=== PATIENT | male | born 1950 | race Caucasian/White ===

== ENCOUNTER 2020-05-14 12:40 | Emergency (ER) | payer MEDICARE, OTHER, SELFPAY ==
--- NOTE | ~2020-05-14 | XR_ITS ---
XR knee RT 3V DATE: 05/14/2020 13:54 INDICATION: Injury 3 weeks ago; pain behind patella TECHNIQUE: 3 portable views COMPARISON: None FINDINGS: No fracture or dislocation or joint effusion. No periosteal reaction or bone destruction. J oint spaces are preserved. Slight chondrocalcinosis of the knee joint. Arterial calcifications. IMPRESSION: No fracture or dislocation or joint effusion Reviewed, dictated and finalized at location A.
[2020-05-14 13:58] VITALS: BP 161/76; PULSE 72; RESP 18; TEMP 36.7; O2SAT 100
--- NOTE | 2020-05-14 14:42 | ED.LOWEXIN ---
HPI - Extremity Injury (Lower) General Chief Complaint: Extremity Injury, Lower <Yany Rodrigues PA-C - Last Filed: 05/14/20 14:50> Stated Complaint: R knee pain/injury <MARILY Rodriguez Last Filed: 05/14/20 14:50> Time Seen by Provider: 05/14/20 12:45 <MARILY Rodriguez Last Filed: 05/14/20 14:50> Source: patient <MARILY Rodriguez Last Filed: 05/14/20 14:50> Mode of arrival: ambulatory <MARILY Rodriguez Last Filed: 05/14/20 14:50> Limitations: no limitations <MARILY Rodriguez Last Filed: 05/14/20 14:50> History of Present Illness HPI Narrative: Patient presents with chief complaint of pain to the right knee that began after getting into the car this morning and twisting the knee feeling a popping sensation. Patient reports that the pain is in the center and radiates medially with weightbearing and knee in flexion. Patient states in 1989 he had an arthroscopic procedure for meniscal tears but has not had any other injuries or surgeries on the knee since. Patient states that his orientation and mobility specialist is Dr. thomas but they cannot get him in the office today so he came to the emergency department. Patient states that he took ibuprofen and Tylenol without relief of his discomfort. Patient denies any other injuries or concerns. <Yany Rodrigues PA-C - Last Filed: 05/14/20 14:50> Related Data Allergies/Adverse Reactions: Allergies Allergy/AdvReac Type Severity Reaction Status Date / Time No Known Allergies Allergy Mild Unverified 06/22/11 11:43 <Yany Rodrigues PA-C - Last Filed: 05/14/20 14:50> Review of Systems Review of Systems: Narrative: CONSTITUTIONAL: Denies fever, chills, or sweats. EYES: Denies visual changes, redness, or discharge. ENT: Denies rhinorrhea, congestion, sore throat, or otalgia. CARDIOVASCULAR: Denies chest pain, palpitations, or edema. RESPIRATORY: Denies cough or dyspnea. GASTROINTESTINAL: Denies abdominal pain, nausea, vomiting, or diarrhea. GENITOURINARY: Denies dysuria or hematuria. SKIN: Denies rash or itching. MUSCULOSKELETAL: Reports right knee pain denies back pain, myalgia NEUROLOGIC: Denies headache, numbness, dizziness, or weakness. PSYCHIATRIC: Denies anxiety or depression. <aYny Rodrigues PA-C - Last Filed: 05/14/20 14:50> Exam Narrative: Exam Narrative: GENERAL: Well-appearing, well-nourished. HEAD: Normocephalic, atraumatic. EYES: PERRLA and EOMI. ENT: Nares clear, no rhinorrhea or epistaxis. Mucous membranes moist. Oropharynx without tonsillar hypertrophy exudate or other lesions. Bilateral TMs pearly emanuel nonbulging NECK: Supple. No adenopathy or masses. No vertebral tenderness or loss of ROM. CHEST: Clear to auscultation. No respiratory distress. No wheezes rales or rhonchi HEART: Regular rate and rhythm. Normal peripheral pulses. EXTREMITIES: Minimal swelling noted diffusely to right knee. There is no erythema or ecchymosis. Knee is not painful to palpation. He reports pain with active flexion, less pain with passive flexion. There is not significant laxity noted with anterior posterior drawer maneuvers. Pain is not elicited with medial or lateral tension applied. SKIN: Warm, dry, no rash. NEURO: No focal deficits. Alert and oriented x3. PSYCH: Normal mood and affect. <Yany Rodrigues PA-C - Last Filed: 05/14/20 14:50> Course Vital Signs Vital signs: Vital Signs Temperature 98.1 F 05/14/20 13:58 Pulse Rate 72 05/14/20 13:58 Respiratory Rate 18 05/14/20 13:58 Blood Pressure 161/76 H 05/14/20 13:58 Pulse Oximetry 100 05/14/20 13:58 Temperature 98.1 F 05/14/20 13:58 Pulse Rate 76 05/14/20 14:46 Respiratory Rate 17 05/14/20 14:46 Blood Pressure 159/93 H 05/14/20 14:46 Pulse Oximetry 96 05/14/20 14:46 <MARILY Rodriguez Last Filed: 05/14/20 14:50> Vital Signs Temperature 98.1 F 05/14/20 13:58 Pulse Rate 72 05/14/20 13:58 Respi
[2020-05-14 14:46] VITALS: BP 159/93; PULSE 76; RESP 17; O2SAT 96
== END 2020-05-14 15:18 | disposition home or self-care (01) ==
PROVIDERS: Emergency Provider General Practice; PCP Family Medicine
DX: S83.91XA Sprain of unspecified site of right knee, initial encounter (principal); X50.9XXA Other and unspecified overexertion or strenuous movements or postures, initial encounter
CPT/HCPCS: 73562; 99283

== ENCOUNTER 2020-05-20 10:25 | Outpatient (CLI) | payer MEDICARE, OTHER, SELFPAY ==
--- NOTE | ~2020-05-20 | US_ITS ---
EXAMINATION: US venous doppler [facility] DATE: 05/20/2020 11:21 INDICATION: Lower limb swelling. TECHNIQUE: Grayscale ultrasound images without and with compression and Doppler ultrasound images of the bilateral lower extremity veins were obtained. COMPARISON: Ultrasound 01/03/2018 FINDINGS: The visualized portions of right common femoral vein, profunda (deep) femoral vein, femoral vein, pop liteal vein, posterior tibial veins, and greater saphenous vein outflow are patent. The visualized portions of left common femoral vein, profunda femoral vein, femoral vein, popliteal v ein, posterior tibial veins, and greater saphenous vein outflow are patent. IMPRESSION: 1. No deep venous thrombosis. Reviewed, dictated and finalized at location A.
== END 2020-05-20 10:26 | disposition home or self-care (01) ==
LOC: ANHIMG 10:26
PROVIDERS: PCP Family Medicine; Visit Provider Orthopaedic Surgery
DX: M79.89 Other specified soft tissue disorders (principal)
CPT/HCPCS: 93970

== ENCOUNTER 2020-08-18 10:34 | Outpatient (CLI) | payer MEDICARE, OTHER, SELFPAY ==
[2020-08-18 11:00] LABS: Basophils Absolute Auto 0.1 K/mm3 (0.0-0.1); Eosinophils Absolute Auto 0.4 K/mm3 (0-0.3); Eosinophils Percent Auto 3.7 % (0-4.4); Hematocrit 45.3 % (42.0-52.0); Hemoglobin 15.2 g/dL (14.0-18.0); Immature Granulocyte Absolute 0.07 K/mm3 (0.00-0.031); Immature Granulocyte Percent A 0.7 % (0-0.5); Lymphocytes Absolute Auto 2.09 K/mm3 (0.9-3.2); Lymphocytes Percent Auto 21.1 % (18.3-44.2); Mean Corpuscular HGB Conc 33.6 g/dl (32-36); Mean Corpuscular Volume 95.4 fl (80-100); Mean Platelet Volume 9.1 fl (7.4-10.4); Monocytes Absolute Auto 1.1 K/mm3 (0.1-0.6); Monocytes Percent Auto 11.4 % (2.6-8.5); Neutrophils Absolute Auto 6.2 K/mm3 (1.3-6.7); Neutrophils Percent Auto 62.1 % (45.5-73.1); Platelet Count Result 303 k/mm3 (150-375); Red Blood Count 4.75 M/mm3 (4.6-6.20); Red Cell Distribution Width 12.4 % (11.5-14.5); White Blood Count 9.9 K/mm3 (4.5-10.0)
[2020-08-18 11:12] LABS: Anion Gap 7 mmol/L (8-16); Blood Urea Nitrogen 11 mg/dL (9-20); Carbon Dioxide 28 mmol/L (22-30); Chloride 102 mmol/L (98-107); Estimated Glomerular Filt Rate > 60; Glucose 114 mg/dL (75-110); Potassium 4.5 mmol/L (3.4-5.0); Sodium 137 mmol/L (137-145)
[2020-08-18 12:19] LABS: Folic Acid 9.1 ng/mL (2.76->20)
== END 2020-08-18 10:35 | disposition home or self-care (01) ==
LOC: ANHLAB 10:35
PROVIDERS: PCP Family Medicine; Visit Provider Family Medicine
DX: I10 Essential (primary) hypertension (principal); F10.10 Alcohol abuse, uncomplicated
CPT/HCPCS: 36415; 80048; 82607; 82746; 85025

== ENCOUNTER 2021-01-03 14:03 | Emergency (ER) | payer MEDICARE, OTHER, SELFPAY ==
[2021-01-03 14:13] VITALS: BP 147/65; PULSE 59; RESP 18; TEMP 36.4; O2SAT 100
--- NOTE | 2021-01-03 14:25 | ED.EAR ---
HPI - Ear Problem General Chief complaint: Ear Stated complaint: Pain in left ear Time Seen by Provider: 01/03/21 14:21 Source: patient and RN notes reviewed Mode of arrival: ambulatory Limitations: no limitations History of Present Illness HPI Narrative: Patient presents today complaining of a 2-day history of left ear pain that has been intermittent. Denies any additional symptoms to include cough, congestion, rhinorrhea, left ear drainage, decreased hearing. He does report allergy symptoms but is nonspecific. He does not currently take any allergy medication and has tried no [id number] treatment for his current ear pain symptoms. He has had his COVID-19 vaccine. Currently rates his pain 9/10 when it is present. MD Complaint: ear pain Related Data Home Medications Medication Instructions Recorded Confirmed aspirin 81 mg tablet,delayed 81 mg PO DAILY 08/18/20 01/03/21 release Allergies Allergy/AdvReac Type Severity Reaction Status Date / Time No Known Allergies Allergy Mild Verified 10/29/20 08:52 Review of Systems Review of Systems: Narrative: CONSTITUTIONAL: Denies body aches, fever, chills, or sweats. EYES: Denies visual changes, redness, or discharge. ENT: Denies rhinorrhea, congestion, sore throat. + Left ear pain CARDIOVASCULAR: Denies chest pain, palpitations, or edema. RESPIRATORY: Denies cough or dyspnea. GASTROINTESTINAL: Denies abdominal pain, nausea, vomiting, or diarrhea. GENITOURINARY: Denies dysuria or hematuria. SKIN: Denies rash, itching, or wounds. MUSCULOSKELETAL: Denies back pain, joint pain, or myalgia. NEUROLOGIC: Denies headache, numbness, tingling, or weakness. PSYCH: Denies depression or anxiety. [facility] Past Medical History Medical History Alcohol abuse Basal cell carcinoma BMI greater than 40 Cataract Chronic GERD Hyperlipidemia Hypertension Leg edema Low vitamin B12 level Osteoarthritis of right knee Spinal stenosis Surgical History Surgical History History of knee surgery History of shoulder surgery History of spinal fusion Hx of LASIK Family History Family History Other Heart disease Hypertension Pancreatic cancer Social History Social History Smoking end date: 08/18/20 Alcohol intake: current Drinks per week: 60 Gender identity (if verbalized by the patient): Male Comments At time of signature, I have reviewed and agree with nursing past medical, surgical, social and family history unless otherwise noted. Please see nursing chart for further information. There is no relevant family history pertinent to the presenting complaint Exam Narrative: Exam Narrative: GENERAL: Well-appearing, well-nourished, and in no acute distress. HEAD: Normocephalic, atraumatic. EYES: EOMI. No redness or drainage. Conjunctivae normal. ENT: Mucous membranes pink and moist. Nares clear. No rhinorrhea. Right TM normal. Left TM with clear bulging fluid. Throat normal. Uvula midline. NECK: Normal AROM. Supple. No lymphadenopathy. CHEST: No respiratory distress. Clear to auscultation. HEART: Regular rate and rhythm. No murmur appreciated. Normal peripheral pulses. EXTREMITIES: Normal range of motion. No edema. SKIN: Warm, dry, no rash. Capillary refill normal. Normal skin turgor. NEURO: No focal deficits. Alert and oriented x3. Gait steady. PSYCH: Normal affect. No signs of depression or anxiety. Course Vital Signs Vital signs: Vital Signs Temperature 97.6 F 01/03/21 14:13 Pulse Rate 59 L 01/03/21 14:13 Respiratory Rate 18 01/03/21 14:13 Blood Pressure 147/65 H 01/03/21 14:13 Pulse Oximetry 100 01/03/21 14:13 Temperature 97.6 F 01/03/21 14:13 Pulse Rate 59 L 01/03/21 14:13 Respiratory Rate 18 01/03/21 14:1
== END 2021-01-03 14:32 | disposition home or self-care (01) ==
PROVIDERS: Emergency Provider Nurse Practitioner; PCP Family Medicine
DX: H65.02 Acute serous otitis media, left ear (principal); K21.9 Gastro-esophageal reflux disease without esophagitis; E78.5 Hyperlipidemia, unspecified; I10 Essential (primary) hypertension; Z85.828 Personal history of other malignant neoplasm of skin; M48.00 Spinal stenosis, site unspecified
CPT/HCPCS: 99213; G0463

== ENCOUNTER → 2021-02-04 10:19 | Outpatient (CLI) | payer MEDICARE, OTHER, SELFPAY ==
--- NOTE | ~2021-02-04 | XR_ITS ---
EXAMINATION: XR chest 2V DATE: 02/04/2021 10:35 INDICATION: Cough TECHNIQUE: PA and lateral views of the chest were obtained. COMPARISON: Chest radiograph dated 07/22/2018 FINDINGS: The lungs remain clear with no focal airspace opacities, pulmonary edema, pleural effusion or pneumot horax. The cardiomediastinal silhouette is normal. Visualized bones and soft tissues are unremarkable . IMPRESSION: 1. No acute cardiopulmonary disease. Reviewed, dictated and finalized at location A.
== END ==
PROVIDERS: PCP Family Medicine; Visit Provider Family Medicine
DX: R05 Cough (principal)
CPT/HCPCS: 71046

== ENCOUNTER 2021-05-21 09:41 | Emergency (ER) | payer MEDICARE, OTHER, SELFPAY ==
--- NOTE | ~2021-05-21 | XR_ITS ---
XR foot RT min 3V DATE: 05/21/2021 09:59 INDICATION: Dropped furniture on the metatarsophalangeal areas 4 days ago. Pain. TECHNIQUE: 4 views COMPARISON: None FINDINGS: Plantar calcaneal enthesopathy. There is soft tissue swelling of the foot. No fracture or dislocation, periosteal reaction or bone de struction. IMPRESSION: Plantar calcaneal enthesopathy No fracture or dislocation Reviewed, dictated and finalized at location A.
[2021-05-21 09:49] VITALS: BP 156/73; PULSE 67; RESP 16; TEMP 36.2; O2SAT 98
--- NOTE | 2021-05-21 10:23 | ED.LOWEXIN ---
HPI - Extremity Injury (Lower) General Chief Complaint: Extremity Injury, Lower Stated Complaint: right foot pain Time Seen by Provider: 05/21/21 10:20 Source: patient Mode of arrival: ambulatory Limitations: no limitations History of Present Illness HPI Narrative: Armani Silvestre is a 71 yo male with a PMH of high blood pressure and high cholesterol who [facility] with right foot swelling and pain after dropping a buffet on his foot on Monday he has been able to walk since then but has peripheral circulatory insufficiency and wanted to make sure he did not have a fracture in his foot Related Data Allergies Allergy/AdvReac Type Severity Reaction Status Date / Time No Known Allergies Allergy Mild Verified 05/21/21 10:01 Review of Systems Review of Systems: CONSTITUTIONAL: Denies fever, chills, sweats. EYES: Denies visual changes, redness, discharge. ENT: Denies rhinorrhea, congestion, sore throat, otalgia. CARDIOVASCULAR: Denies chest pain, palpitations, edema. RESPIRATORY: Denies dyspnea, wheezing, cough GASTROINTESTINAL: Denies abdominal pain, nausea, vomiting, diarrhea. GENITOURINARY: Denies dysuria, hematuria, abnormal discharge SKIN: Denies rash or itching. NEUROLOGIC: Denies numbness, or focal weakness. PSYCHIATRIC: Denies anxiety or depression. Right foot pain PMFSH Past Medical History Medical History Alcohol abuse Basal cell carcinoma BMI greater than 40 BMI greater than 40 Cataract Chronic GERD Cough Elevated glucose Hyperlipidemia Hypertension Leg edema Low vitamin B12 level Osteoarthritis of right knee Screening for prostate cancer Spinal stenosis Surgical History Surgical History History of knee surgery History of shoulder surgery History of spinal fusion Hx of LASIK Family History Family History Other Heart disease Hypertension Pancreatic cancer Social History Social History Smoking end date: 08/18/20 Alcohol intake: current Drinks per week: 60 Gender identity (if verbalized by the patient): Male Comments At time of signature, I agree with nursing past medical, surgical, social and family history. There is no relevant family history pertinent to the presenting complaint. Exam Narrative: GENERAL: This is a well-nourished, well-developed patient, in mild distress. HEAD: normocephalic, atraumatic. EYES:. Sclera clear/white. Vision is grossly intact. EARS: External ears normal. Hearing grossly intact. NOSE: External nose normal without nasal discharge, nares without redness, no rhinorrhea. THROAT: Mucous membranes moist, NECK: Neck supple, CARDIOVASCULAR: Regular rate and rhythm without murmurs, gallops, or rubs. RESPIRATORY: Clear to auscultation. Breath sounds equal bilaterally. No wheezes, rales, or rhonchi. GASTROINTESTINAL: Abdomen soft, SKIN: warm, intact with no suspicious lesions or rash, good texture and turgor. NEURO: awake, alert, and oriented to person, place and time. There were no obvious focal neurologic abnormalities. Steady gait EXTREMITIES: Normal range of motion. Right foot pain with swelling with ecchymosis at the base of the toes BACK: Nontender without deformity Course Course Emergency Course: X-ray right foot shows no fracture dislocation there is soft tissue swelling of the foot Francisco J wrap applied to foot, given trauma Vital Signs Vital signs: Vital Signs Temperature 97.2 F L 05/21/21 09:49 Pulse Rate 67 05/21/21 09:49 Respiratory Rate 16 05/21/21 09:49 Blood Pressure 156/73 H 05/21/21 09:49 Pulse Oximetry 98 05/21/21 09:49 Temperature 97.2 F L 05/21/21 09:49 Pulse Rate 67 05/21/21 09:49 Respiratory Rate 16 05/21/21 09:49 Blood Pressure 156/73 H 05/21/21 09:49 Pulse Oximetry 98 05/21/21 0
== END 2021-05-21 10:45 | disposition home or self-care (01) ==
PROVIDERS: Emergency Provider Nurse Practitioner; PCP Family Medicine
DX: M79.671 Pain in right foot (principal); S90.31XA Contusion of right foot, initial encounter; W20.8XXA Other cause of strike by thrown, projected or falling object, initial encounter; K21.9 Gastro-esophageal reflux disease without esophagitis; E78.5 Hyperlipidemia, unspecified; I10 Essential (primary) hypertension; M17.11 Unilateral primary osteoarthritis, right knee; M48.00 Spinal stenosis, site unspecified; Z85.828 Personal history of other malignant neoplasm of skin; H26.9 Unspecified cataract
CPT/HCPCS: 73630; 99213; G0463

== ENCOUNTER 2021-12-23 08:58 | Outpatient (CLI) | payer MEDICARE, OTHER, SELFPAY ==
--- NOTE | ~2021-12-23 | US_ITS ---
EXAMINATION:US venous doppler LE BI INDICATION:Leg swelling TECHNIQUE: Multiple grayscale, color flow and Doppler images of the right and left lower extremity de ep venous systems were obtained and reviewed. COMPARISON:05/20/2020 FINDINGS: The common femoral, superficial femoral and popliteal veins demonstrate normal respiratory variation, augmentation and compressibility. Color flow is also seen within the posterior tibial, pe roneal, greater saphenous and profunda veins. IMPRESSION: 1: No lower extremity deep venous thrombosis. Reviewed, dictated and finalized at location B.
== END 2021-12-23 08:59 | disposition home or self-care (01) ==
LOC: ANHIMG 08:59
PROVIDERS: PCP Family Medicine; Visit Provider Family Medicine
DX: M79.89 Other specified soft tissue disorders (principal)
CPT/HCPCS: 93970

== ENCOUNTER 2021-12-31 12:58 | Outpatient (CLI) | payer MEDICARE, OTHER, SELFPAY ==
--- NOTE | 2021-12-31 13:03 | ECHO_ITS ---
Patient Info Name: Armani Silvestre Age: 71 years : 1950 Gender: Male Ht: 72 in Wt: 335 lbs BSA: 2.85 m2 HR: 66 bpm BP: 176 / 91 mmHg Heart Rhythm: Sinus Rhythm Technical Quality: Fair Exam Date: 12/31/2021 1:12 PM Exam Location: [facility] Patient Status: Outpatient Admit Date: 12/31/2021 Staff Ordering Physician: Tej Irby MD Electrical Equipment Tester: Kaity Carrizales RDCS Attending Provider: Tej Irby MD Referring Physician: Surekha VAUGHN; Exam Type: CA echo doppler color flow Study Info Indications - Essential (primary) hypertension Complete two-dimensional, color flow and Doppler transthoracic echocardiogram is performed. Summary 1. Complete two-dimensional, color flow and Doppler transthoracic echocardiogram is performed. 2. Left ventricular chamber dimension is normal. 3. Left ventricular systolic function is normal, estimated at 60-65%. 4. There is mildly increased left ventricular wall thickness. 5. The left ventricular diastolic function is grade II diastolic dysfunction. 6. E/e' 14 is mildly elevated. 7. No pulmonary hypertension, estimated pulmonary arterial systolic pressure is 15 mmHg. Left Ventricle E/e' 14 is mildly elevated. Left ventricular chamber dimension is normal. Left ventricular systolic function is normal, estimated at 60-65%. There is mildly increased left ventricular wall thickness. The left ventricular diastolic function is grade II diastolic dysfunction. Right Ventricle Right ventricular systolic function is normal and with normal TAPSE 2.6 cm. Right ventricular chamber dimension is normal. Left Atria Left atrial chamber dimension is normal. Right Atria Right atrial chamber dimension is normal. Aortic Valve The aortic valve is trileaflet. There is no aortic valve stenosis. There is no aortic valve regurgitation. Pulmonic Valve There is no pulmonic regurgitation. Mitral Valve There is no mitral valve stenosis. There is no mitral valve regurgitation. Tricuspid Valve There is no tricuspid valve regurgitation. No pulmonary hypertension, estimated pulmonary arterial systolic pressure is 15 mmHg. Pericardium/Pleural There is no pericardial effusion. Inferior Vena Cava Normal inferior vena cava with >50% collapse upon inspiration consistent with normal right atrial pressure, 5 mmHg. Aorta The aortic root size at the sinus of Valsalva is normal. Left Ventricular Outflow Tract Name Value Normal LVOT 2D LVOT Diameter 2.1 cm LVOT Doppler LVOT Peak Gradient 6 mmHg LVOT Mean Gradient 3 mmHg LVOT VTI 25 cm LVOT VTI/AV VTI Ratio 0.9 LVOT Stroke Volume 87 ml LVOT CO 5.6 l/min LVOT CI 2.0 l/min/m2 Pulmonic Valve Name Value Normal
== END 2021-12-31 12:59 | disposition home or self-care (01) ==
LOC: ANHCARD 12:59
PROVIDERS: PCP Family Medicine; Visit Provider Family Medicine
DX: I10 Essential (primary) hypertension (principal)
CPT/HCPCS: 93306

== ENCOUNTER 2022-07-03 09:52 | Emergency (ER) | payer MEDICARE, OTHER, SELFPAY ==
--- NOTE | ~2022-07-03 | XR_ITS ---
XR chest 2V DATE: 07/03/2022 10:06 INDICATION: Chest pain TECHNIQUE: PA and lateral views COMPARISON: 02/04/2021 PA and lateral chest FINDINGS: Heart size is within normal range. Is aortic arch calcification and minimal aortic unfoldin g. No hilar or mediastinal enlargement. No pulmonary infiltrate or consolidation, pleural effusion or pulmonary vascular congestion or pneumo thorax. IMPRESSION: No active cardiopulmonary disease Reviewed, dictated and finalized at location A. [employer]
--- NOTE | 2022-07-03 09:54 | ECG_ITS ---
Measurements Intervals [place] Rate: 62 P: -23 MN: 188 QRS: 131 QRSD: 89 T: 94 QT: 387 QTc: 394 Interpretive Statements SINUS RHYTHM HIGH LATERAL INFARCT, AGE INDETERMINATE BASELINE ARTIFACT- II, AVR, AVF ABNORMAL ECG NO PREVIOUS ECG AVAILABLE FOR COMPARISON Electronically Signed On 07-03-2022 15:55:51 REFRIGERATION SYSTEMS INSTALLER by Roger Chopra D.O.
[2022-07-03 09:56] VITALS: BP 122/59; PULSE 63; RESP 16; TEMP 36.7; O2SAT 95
[2022-07-03 10:25] LABS: Basophils Absolute Auto 0.1 K/mm3 (0.0-0.1); Eosinophils Percent Auto 0.5 % (0-4.4); Hematocrit 45.6 % (42.0-52.0); Hemoglobin 15.3 g/dL (14.0-18.0); Immature Granulocyte Absolute 0.04 K/mm3 (0.00-0.031); Immature Granulocyte Percent A 0.7 % (0-0.5); Lymphocytes Percent Auto 18.3 % (18.3-44.2); Mean Corpuscular HGB Conc 33.6 g/dl (32-36); Mean Corpuscular Hemoglobin 33.5 pg (26-34); Mean Corpuscular Volume 99.8 fl (80-100); Mean Platelet Volume 9.3 fl (7.4-10.4); Monocytes Absolute Auto 1.3 K/mm3 (0.1-0.6); Monocytes Percent Auto 21.1 % (2.6-8.5); Neutrophils Absolute Auto 3.5 K/mm3 (1.3-6.7); Neutrophils Percent Auto 58.4 % (45.5-73.1); Platelet Count Result 252 k/mm3 (150-375); Red Blood Count 4.57 M/mm3 (4.6-6.20); Red Cell Distribution Width 12.7 % (11.5-14.5)
[2022-07-03 10:31] VITALS: PULSE 60
[2022-07-03 10:32] VITALS: BP 130/68; PULSE 61; RESP 15; O2SAT 93
[2022-07-03 10:36] LABS: Alanine Aminotransferase 40 U/L (6-50); Albumin Level 4.3 g/dL (3.5-5.1); Alkaline Phosphatase 59 U/L (38-126); Anion Gap 11 mmol/L (8-16); Aspartate Amino Transferase 56 U/L (17-59); Bilirubin,Total 0.7 mg/dL (0.2-1.3); Blood Urea Nitrogen 14 mg/dL (9-20); Calcium 8.3 mg/dL (8.4-10.2); Carbon Dioxide 26 mmol/L (22-30); Chloride 98 mmol/L (98-107); Estimated CRCL calculation 82 ml/min; Estimated Glomerular Filt Rate > 60; Glucose 136 mg/dL (65-110); Lipase 38 U/L (23-300); Potassium 3.4 mmol/L (3.4-5.0); Sodium 135 mmol/L (137-145)
[2022-07-03 10:38] LABS: INR 1.1; Prothrombin Time 13.3 Seconds (11.1-14.7)
[2022-07-03 10:47] LABS: Troponin I < 0.012 ng/mL (0.000-0.034)
[2022-07-03 11:18] LABS: Influenza A QL RT-PCR Positive (Negative); Influenza B QL RT-PCR Negative (Negative); SARS-CoV-2 RNA PCR Negative
[2022-07-03 11:48] VITALS: BP 130/68; PULSE 61; RESP 18; O2SAT 94
--- NOTE | 2022-07-03 12:41 | ED.CHESTPAIN ---
HPI - Chest Pain General Chief Complaint: Chest Pain Stated Complaint: diaphoretic, CP Time Seen by Provider: 07/03/22 10:02 History of Present Illness HPI narrative: Patient is a 72-year-old male who presents ER with diaphoresis and cough. Patient began having cough yesterday. Associated sinus congestion. No sore throat. Began having sweats and chills last night as well. Patient has occasional chest pain with coughing and feels congested. No pain with deep breath. No exertional chest discomfort. No documented fever at home. Related Data Allergies Allergy/AdvReac Type Severity Reaction Status Date / Time No Known Allergies Allergy Mild Verified 07/03/22 10:33 Review of Systems Review of Systems: All systems reviewed & are unremarkable except as noted in HPI and below Constitutional: Constitutional: Denies chills, Reports fatigue and Denies fever(s) Comments: Diaphoresis ENT: Reports nasal congestion and Denies sore throat Cardiovascular: Cardiovascular: Reports chest pain, Denies rapid heart rate and Denies radiating jaw, neck or arm pain Respiratory: Respiratory: Reports chest congestion, Reports cough and Denies dyspnea Gastrointestinal: Gastrointestinal: Denies abdominal pain, Denies nausea and Denies vomiting Neurologic: Denies focal weakness and Denies numbness PMFSH Past Medical History Medical History Alcohol abuse Basal cell carcinoma BMI greater than 40 BMI greater than 40 Cataract Chronic GERD Cough Elevated glucose Hyperlipidemia Hypertension Leg edema Low vitamin B12 level Osteoarthritis of right knee Screening for prostate cancer Spinal stenosis Surgical History Surgical History History of knee surgery History of shoulder surgery History of spinal fusion Hx of LASIK Family History Family History Other Heart disease Hypertension Pancreatic cancer Social History Social History Smoking status: Former smoker Tobacco type: cigarettes Smoking end date: 08/18/20 Alcohol intake: current Drinks per week: 60 Gender identity (if verbalized by the patient): Male Exam Narrative: GENERAL: Fatigued-appearing, well-nourished, and diaphoretic. HEAD: Normocephalic, atraumatic. EYES: PERRL and EOMI. ENT: Mucous membranes moist. CHEST: Clear to auscultation. No respiratory distress. Occasional cough. HEART: Regular rate and rhythm. Normal peripheral pulses. ABDOMEN: Soft, nontender, nondistended. EXTREMITIES: Normal range of motion. No edema. SKIN: Warm, dry, no rash. NEURO: Alert and oriented x3. PSYCH: Normal mood and affect. Course Course Emergency Course: Patient resting comfortably. Informed of results. Symptoms felt to be related to patient's acute influenza infection. Will discharge with Tamiflu. Vital Signs Vital signs: Vital Signs Temperature 98.1 F 07/03/22 09:56 Pulse Rate 63 07/03/22 09:56 Respiratory Rate 16 07/03/22 09:56 Blood Pressure 122/59 L 07/03/22 09:56 Pulse Oximetry 95 07/03/22 09:56 Temperature 98.1 F 07/03/22 09:56 Pulse Rate 61 07/03/22 11:48 Respiratory Rate 18 07/03/22 11:48 Blood Pressure 130/68 07/03/22 11:48 Pulse Oximetry 94 07/03/22 11:48 MDM - Chest Pain Lab Data Result diagrams: 07/03/22 10:12 07/03/22 10:12 Labs: Lab Results 07/03/22 07/03/22 07/03/22 Range/Units 10:12 10:12 10:12 WBC 6.0 (4.5-10.0) K/mm3 RBC 4.57 L (4.6-6.20) M/mm3 Hgb 15.3 (14.0-18.0) g/dL Hct 45.6 (42.0-52.0) % MCV 99.8 (80-100) fl MCH 33.5 (26-34) pg MCHC 33.6 (32-36) g/dl RDW 12.7 (11.5-14.5) % Plt Count 252 (150-375) k/mm3 MPV 9.3 (7.4-10.4) fl Immature Gran % (Auto) 0.7 H (0-0.5) % Neut % (Auto) 58.
== END 2022-07-03 12:57 | disposition home or self-care (01) ==
PROVIDERS: Emergency Provider Emergency Medicine; PCP Family Medicine
DX: J10.1 Influenza due to other identified influenza virus with other respiratory manifestations (principal); Z20.822 Contact with and (suspected) exposure to COVID-19; E78.5 Hyperlipidemia, unspecified; I10 Essential (primary) hypertension; Z85.828 Personal history of other malignant neoplasm of skin; M17.11 Unilateral primary osteoarthritis, right knee; R07.9 Chest pain, unspecified; Z98.1 Arthrodesis status; Z87.891 Personal history of nicotine dependence; R94.31 Abnormal electrocardiogram [ECG] [EKG]
CPT/HCPCS: 36415; 71046; 80053; 83690; 84484; 85025; 85610; 85730; 87636; 93005; 99284

== ENCOUNTER 2023-02-14 01:19 | Day surgery (SDC) | payer MEDICARE, OTHER, SELFPAY ==
[2023-01-10 14:20] VITALS: BMI 42.4
[2023-02-14 09:40] VITALS: BP 155/82; PULSE 57; RESP 20; TEMP 36.4; O2SAT 100; BMI 42.7
[2023-02-14] MEDS: LACTATED RINGERS 1,000 ML 150 ML IV CONT (09:55)
[2023-02-14 09:57] LABS: Glucose Point of Care 106 mg/dl (65-105)
--- NOTE | 2023-02-14 10:11 | PM.HPGS ---
History of Present Illness History of Present Illness Consent: Risks, benefits, and alternatives have been discussed and questions answered. Patient agrees to proceed with procedure. Chief complaint: diarrhea Narrative: Armani Silvestre is a 72 year old male Presents for colonoscopy. Patient reports diarrhea over last several months. States during this interval of time was started on Entresto. He also takes Jardiance. He has mildly elevated glucose. Patient denies a diagnosis of diabetes. Patient reports diarrhea occurs shortly after eating. He denies any bleeding weight loss. He has no abdominal pain. Family history noncontributory. Review of Systems Review of Systems: Review of systems noncontributory. [facility] Past Medical History Medical History (Updated 11/28/22 @ 10:05 by Tej Irby MD) Alcohol abuse Basal cell carcinoma BMI greater than 40 BMI greater than 40 Cataract Chronic GERD Cough Diarrhea Elevated glucose Elevated glucose Heart failure with preserved ejection fraction Hyperlipidemia Hypertension Leg edema Low vitamin B12 level Osteoarthritis of right knee Polyuria Screening for prostate cancer Spinal stenosis Surgical History Surgical History History of knee surgery History of shoulder surgery History of spinal fusion Hx of LASIK Family History Family History Other Heart disease Hypertension Pancreatic cancer Social History Social History Smoking packs per day: 2 Smoking cigarettes per day: 40.0 Years smoked: 30 Smoking pack-years: 60.00 Smoking status: Former smoker Tobacco type: cigarettes Smoking end date: 08/18/20 Alcohol intake: current Drinks per week: 36 Substance use type: does not use Living arrangements: with family Gender identity (if verbalized by the patient): Male Spiritual care concerns: No Meds Home Medications and Allergies Home Medications Medication Instructions Recorded Confirmed Type acetaminophen 500 mg tablet 500 mg PO Q6H 10/24/22 02/14/23 History empagliflozin 10 mg tablet 10 mg PO DAILY 10/24/22 02/14/23 History (Jardiance) sacubitril 49 mg-valsartan 51 mg 1 tablet PO BID 10/24/22 02/14/23 History tablet (Entresto) furosemide 40 mg tablet 40 mg PO QAM #90 tabs 11/29/22 02/14/23 Rx metoprolol succinate 100 mg 100 mg PO DAILY #90 tabs 12/03/22 02/14/23 Rx tablet,extended release 24 hr atorvastatin 10 mg tablet 10 mg PO DAILY #90 tabs 01/10/23 02/14/23 Rx omeprazole 20 mg capsule,delayed 20 mg PO DAILY #90 caps 01/10/23 02/14/23 Rx release potassium chloride 10 mEq 10 meq PO DAILY #90 caps 01/10/23 02/14/23 Rx capsule,extended release Allergies Allergy/AdvReac Type Severity Reaction Status Date / Time No Known Allergies Allergy Mild Verified 02/14/23 09:37 Vital Signs Vital Signs - 24 hr 02/14/23 09:40 Temperature 97.5 F L Pulse Rate 57 L Respiratory Rate 20 Blood Pressure 155/82 H Pulse Oximetry 100 Oxygen Delivery Room Air Exam Narrative: Physical exam reveals patient be overweight. Vital signs are stable. HEENT exam is unremarkable. Patient is anicteric. Lungs are clear to auscultation and percussion. Heart is without murmur or extra sounds. Abdomen bowel sounds are present soft nontender with no organomegaly. Digital external rectal exam normal. Assessment and Plan Assessment and plan (1) Diarrhea: Qualifiers: Diarrhea type: unspecified type Qualified Code(s): R19.7 - Diarrhea, unspecified Code(s): R19.7 - Diarrhea, unspecified Status: Acute Assessment and Plan: Patient referred for colonoscopy because of diarrhea. Diarrhea shortly after eating suggested gastric colic reflex which may be heightened in irritable bowel syndrome. Additionally saroj
--- NOTE | 2023-02-14 10:16 | WPDANESEPPF ---
Anes - Initial Pre Proc Eval Procedure: Operation Date: 02/14/23 10:30 Proposed Procedures p Colonoscopy - Ko Zamorano MD Date/Time: 02/14/23 10:16 Surgeon: Ko Zamorano MD Pre Op Diagnosis: diarrhea Patient Data Age: 72 Gender: M Height: 1.83 m Weight: 142.8 kg Last Vital Signs Temp 36.4 C L 02/14/23 09:40 Pulse 57 L 02/14/23 09:40 Resp 20 02/14/23 09:40 BP 155/82 H 02/14/23 09:40 Pulse Ox 100 02/14/23 09:40 O2 Del Method Room Air 02/14/23 09:40 Allergies Allergy/AdvReac Type Severity Reaction Status Date / Time No Known Allergies Allergy Mild Verified 02/14/23 09:37 Home Medications Medication Instructions Recorded Confirmed Type acetaminophen 500 mg tablet 500 mg PO Q6H 10/24/22 02/14/23 History empagliflozin 10 mg tablet 10 mg PO DAILY 10/24/22 02/14/23 History (Jardiance) sacubitril 49 mg-valsartan 51 mg 1 tablet PO BID 10/24/22 02/14/23 History tablet (Entresto) furosemide 40 mg tablet 40 mg PO QAM #90 tabs 11/29/22 02/14/23 Rx metoprolol succinate 100 mg 100 mg PO DAILY #90 tabs 12/03/22 02/14/23 Rx tablet,extended release 24 hr atorvastatin 10 mg tablet 10 mg PO DAILY #90 tabs 01/10/23 02/14/23 Rx omeprazole 20 mg capsule,delayed 20 mg PO DAILY #90 caps 01/10/23 02/14/23 Rx release potassium chloride 10 mEq 10 meq PO DAILY #90 caps 01/10/23 02/14/23 Rx capsule,extended release Laboratory Tests 02/14/23 09:53 POC Capillary Glucose 106 H mg/dl (65-105) Patient hx anesthesia problems: none Family hx anesthesia problems: other (mother slow to awaken) Results Review: All pre-operative results and documents have been reviewed as part of the pre-operative evaluation. [facility] Past Medical History Medical History Alcohol abuse Basal cell carcinoma BMI greater than 40 BMI greater than 40 Cataract Chronic GERD Cough Diarrhea Elevated glucose Elevated glucose Heart failure with preserved ejection fraction Hyperlipidemia Hypertension Leg edema Low vitamin B12 level Osteoarthritis of right knee Polyuria Screening for prostate cancer Spinal stenosis Surgical History Surgical History History of knee surgery History of shoulder surgery History of spinal fusion Hx of LASIK Family History Family History Other Heart disease Hypertension Pancreatic cancer Social History Social History Smoking packs per day: 2 Smoking cigarettes per day: 40.0 Years smoked: 30 Smoking pack-years: 60.00 Smoking status: Former smoker Tobacco type: cigarettes Smoking end date: 08/18/20 Alcohol intake: current Drinks per week: 36 Substance use type: does not use Living arrangements: with family Gender identity (if verbalized by the patient): Male Spiritual care concerns: No Anes - Eval Final PreProcedure Day of Procedure 02/14/23 10:16 Patient weight: morbidly obese Heart: regular rate and rhythm Lungs: decreased breath sounds Airway: Mallampati scale class III Neurological: alert and oriented Last oral intake: >/= 8 hours ASA classification: III Emergent: no Anesthetic plan: proceed Anesthesia type and monitoring: general GIVS and standard monitoring Results Review: All pre-operative results and documents have been reviewed as part of the pre-operative evaluation. Informed Consent: The patient's anesthetic plan and its attendant risks and benefits were discussed with the patient/family/POA. Questions were solicited and answers provided to the satisfaction of the patient/family/POA.
[2023-02-14] MEDS: SIMETHICONE ORAL SUSPENSION 20 MG/0.3 ML 30 ML BOTTLE 0.6 ML IRRIGATION (10:58)
[2023-02-14 11:03] VITALS: BP 126/66; PULSE 57; RESP 19; O2SAT 98
[2023-02-14 11:13] VITALS: BP 144/72; PULSE 53; RESP 19; O2SAT 100
[2023-02-14 11:23] VITALS: BP 159/87; PULSE 53; RESP 21; O2SAT 100
== END 2023-02-14 11:36 | disposition home or self-care (01) ==
PROVIDERS: PCP Family Medicine; Visit Provider Internal Medicine Gastroenterology
PROC: 0DJD8ZZ Inspection of Lower Intestinal Tract, Via Natural or Artificial Opening Endoscopic (ICD-10-PCS; CPT 45378; principal; 2023-02-14 10:30)
DX: R19.7 Diarrhea, unspecified (principal); D12.2 Benign neoplasm of ascending colon; K63.5 Polyp of colon; K64.8 Other hemorrhoids; K57.30 Diverticulosis of large intestine without perforation or abscess without bleeding; E78.5 Hyperlipidemia, unspecified; I11.0 Hypertensive heart disease with heart failure; I50.9 Heart failure, unspecified; K21.9 Gastro-esophageal reflux disease without esophagitis; Z98.1 Arthrodesis status; Z87.891 Personal history of nicotine dependence; E66.01 Morbid (severe) obesity due to excess calories; Z68.41 Body mass index [BMI] 40.0-44.9, adult; Z79.84 Long term (current) use of oral hypoglycemic drugs
CPT/HCPCS: 45385; 45380; 82948; 88305; J2704; J7120

== ENCOUNTER 2023-05-22 12:30 | Outpatient (RCR) | payer MEDICARE, OTHER, SELFPAY ==
--- NOTE | 2023-04-11 14:54 | OPREHPOC ---
Outpatient Therapy Plan of Care This is a Multidisciplinary Plan of Care that may contain components documented by all disciplines (PT, OT, and ST.) PT Problem 1 PT Problem #1 Knowledge Deficit PT Goal 1 Goal [place] with HEP Target Visit 4 PT Problem 2 PT Problem #2 Pain PT Goal 1 Goal report no pain greater than 1/10 with sit to stand activity Target Visit 8 PT Problem 3 PT Problem #3 Edema PT Goal 1 Goal Demonstrate 3cm+ on L knee edema reduction at joint line indicating soft tissue healing Target Visit 12 PT Problem 4 PT Problem #4 Impaired Range of Motion PT Goal 1 Goal Achieve terminal R knee extension to achieve full stride length bilaterally Target Visit 12 PT Goal 2 Goal Achieve 120 degrees of R knee flexion to assist with foot clearence with ADLs Target Visit 12 PT Problem 5 PT Problem #5 Impaired Functional ADLs PT Goal 1 Goal Ascend and descend 12 steps reciprocally for safe transition down basement steps Target Visit 12 PT Goal 2 Goal Perform 20 inch step up with UE assist for entrance to truck Target Visit 12
--- NOTE | 2023-04-11 14:54 | PTOPEVAL1 ---
Assessment and note entered by Barry Garcia, PT Evaluation Information Assessment Status Evaluation Diagnosis Right total knee arthroplasty, Right knee pain Onset 03/20/23 Subjective Information Reports that he is having pain consistently but overall doing well. Hurts to get in and out of bed or the chair. 3 steps to get into home and a full flight. He is wanting to be able to go down stairs and be able to do as high step into his truck which he cant right now. Feels that it is really swollen around the knee cap. Would also like to return to driving. Reported Pain Level Pain Score 3: Self Report Assessment PT Clinical Summary Mr. Silvestre demonstrates signs and symptoms consistent with TKA. Greatest limitations at this time appear to be edema and lack of terminal knee stance during gait. He will benefit from skilled therapy to address these deficits. Would like to return to driving. Dr. Reilly indicated need for stair navigation prior to driving. He is able to do this. He is also demonstrating sufficient foot and ankle transitional activity to justify return to driving at this time. Will benefit from skilled therapy to reach all long and short term goals. Plan of Care Interventions Gait Training,Hot Pack/Cold Pack,Manual Therapy, Neuro Re-education,Therapeutic Activities, Therapeutic Exercise PT Services Indicated Yes Treatment Frequency and 2x/week for 6 weeks Duration These treatments will address the objective and functional deficits as defined above. The patient will be advanced safely and appropriately in order for the patient to progress towards his/her prior level of function. Additional exercises will be introduced and as well as a comprehensive home exercise program upon discharge, if needed, ?to ensure carryover of functional gains achieved in the clinic. This treatment plan has been reviewed and agreement upon by the patient.
--- NOTE | 2023-05-08 14:41 | OPREHPOC ---
Outpatient Therapy Plan of Care This is a Multidisciplinary Plan of Care that may contain components documented by all disciplines (PT, OT, and ST.) PT Problem 1 PT Problem #1 Knowledge Deficit PT Goal 1 Goal [place] with HEP Target Visit 4 Progress Met PT Problem 2 PT Problem #2 Pain PT Goal 1 Goal report no pain greater than 1/10 with sit to stand activity Target Visit 8 Progress Met PT Problem 3 PT Problem #3 Edema PT Goal 1 Goal Demonstrate 3cm+ on L knee edema reduction at joint line indicating soft tissue healing Target Visit 12 Progress Partially Met Comment Progressing but still considerable swelling present. PT Problem 4 PT Problem #4 Impaired Range of Motion PT Goal 1 Goal Achieve terminal R knee extension to achieve full stride length bilaterally Target Visit 12 Progress Partially Met Comment Improved but still lacking PT Goal 2 Goal Achieve 120 degrees of R knee flexion to assist with foot clearance with ADLs Target Visit 12 Progress Met PT Problem 5 PT Problem #5 Impaired Functional ADLs PT Goal 1 Goal Ascend and descend 12 steps reciprocally for safe transition down basement steps Target Visit 12 Progress Met Comment Able to complete today PT Goal 2 Goal Perform 20 inch step up with UE assist for entrance to truck Target Visit 12 Progress Partially Met Comment Achieved 16 in step up
--- NOTE | 2023-05-08 14:46 | PTOPPROG ---
Assessment and note entered by Barry Garcia, PT Evaluation Information Assessment Status Progress Diagnosis Right total knee arthroplasty, Right knee pain Onset 03/20/23 Subjective Information Reports that overall he is doing a lot better. Hoping to return to mowing his yard this week. Knee still feels significantly swollen and he is having trouble with high steps to get into truck. Would like to continue therapy to work on LE stability and gait pattern improvement. Assessment PT Clinical Summary Patient has seen significant improvement in LE strength, knee ROM, and edema, but still shows deficits of fully functional in each. Will continue to benefit from skilled therapy to address these deficits and maximize gross function of gait and ADLs. Needs emphasis placed on terminal knee extension. Plan of Care Interventions Gait Training,Hot Pack/Cold Pack,Manual Therapy, Neuro Re-education,Therapeutic Activities, Therapeutic Exercise PT Services Indicated Yes Treatment Frequency and 2x/week for 6 weeks Duration These treatments will address the objective and functional deficits as defined above. The patient will be advanced safely and appropriately in order for the patient to progress towards his/her prior level of function. Additional exercises will be introduced and as well as a comprehensive home exercise program upon discharge, if needed, ?to ensure carryover of functional gains achieved in the clinic. This treatment plan has been reviewed and agreement upon by the patient.
--- NOTE | 2023-05-15 15:44 | PCPTNOTE ---
Pt. canceled 05/15/23 appointment noting that he was sick.
--- NOTE | 2023-05-22 13:07 | OPREHPOC ---
Outpatient Therapy Plan of Care This is a Multidisciplinary Plan of Care that may contain components documented by all disciplines (PT, OT, and ST.) PT Problem 1 PT Problem #1 Knowledge Deficit PT Goal 1 Goal [place] with HEP Target Visit 4 Progress Met PT Problem 2 PT Problem #2 Pain PT Goal 1 Goal report no pain greater than 1/10 with sit to stand activity Target Visit 8 Progress Met PT Problem 3 PT Problem #3 Edema PT Goal 1 Goal Demonstrate 3cm+ on L knee edema reduction at joint line indicating soft tissue healing Target Visit 12 Progress Met Comment Minimal still present PT Problem 4 PT Problem #4 Impaired Range of Motion PT Goal 1 Goal Achieve terminal R knee extension to achieve full stride length bilaterally Target Visit 12 Progress Partially Met Comment Improved but still lacking PT Goal 2 Goal Achieve 120 degrees of R knee flexion to assist with foot clearance with ADLs Target Visit 12 Progress Met PT Problem 5 PT Problem #5 Impaired Functional ADLs PT Goal 1 Goal Ascend and descend 12 steps reciprocally for safe transition down basement steps Target Visit 12 Progress Met Comment Able to complete today PT Goal 2 Goal Perform 20 inch step up with UE assist for entrance to truck Target Visit 12 Progress Met
--- NOTE | 2023-05-22 13:07 | PTOPDC ---
Assessment and note entered by Barry Garcia, PT Discharge Information Assessment Status Discharge Diagnosis Right total knee arthroplasty, Right knee pain Onset 03/20/23 Subjective Information Reports that as of now there is nothing that he cannot do that he needs to. Feels comfortable with stair navigation, walking, and functional squatting activity. Requesting discharge at this time. Reported Pain Level Pain Score 0: Self Report Assessment PT Clinical Summary Patient meat all of his goals for therapy with exception of full terminal knee extension which will be emphasized as part of halfway HEP. Patient mutually agrees upon discharge at this time. Plan of Care PT Services Indicated No
== END 2023-05-22 14:07 | disposition home or self-care (01) ==
LOC: ANHPT 12:30
PROVIDERS: PCP Family Medicine
DX: Z47.1 Aftercare following joint replacement surgery (principal); Z96.651 Presence of right artificial knee joint
CPT/HCPCS: 97110; 97112; 97140; 97161; 97530

== ENCOUNTER 2023-07-17 09:58 | Emergency (ER) | payer MEDICARE, OTHER, SELFPAY ==
--- NOTE | ~2023-07-17 | XR_ITS ---
EXAMINATION: XR hand LT min 3V INDICATION: Left hand pain, initial encounter TECHNIQUE: Three views of left hand are obtained. COMPARISON: None available FINDINGS: There is an acute, traumatic, closed, oblique shaft fracture of the fifth metacarpal. The d istal fracture fragment demonstrates mild angulation and one cortical width of lateral displacement. There is soft tissue swelling near the fracture. There is mild polyarticular osteoarthritis of multip le interphalangeal joints. Moderate osteoarthritis is noted at the first carpometacarpal joint. IMPRESSION: 1. Acute oblique shaft fracture of the fifth metacarpal. Reviewed, dictated and finalized at location B. RENTAL CLERK
[2023-07-17 10:13] VITALS: BP 187/79; PULSE 82; RESP 16; TEMP 36.4; O2SAT 98
--- NOTE | 2023-07-17 10:56 | ED.UPPEXIN ---
HPI - Extremity Injury (Upper) General Chief Complaint: Extremity Injury, Upper Stated Complaint: left hand injury Time Seen by Provider: 07/17/23 10:55 Source: patient and RN notes reviewed Mode of arrival: ambulatory Limitations: no limitations History of Present Illness HPI narrative: 73-year-old male presents concern for left hand pain and bruising. Reports he fell on July 06 and injury to his hand. Reports he has had some pain and difficulty making a fist since then. Reports he has been taking Tylenol. Reports he noticed some bruising on the dorsal hand today and his made him come and be evaluated. He denies any new injury since July 06 complaint: injury to: left and hand Related Data Home Medications Medication Instructions Recorded Confirmed acetaminophen 500 mg tablet 500 mg PO Q6H 10/24/22 07/17/23 empagliflozin 10 mg tablet 10 mg PO DAILY 10/24/22 07/17/23 (Jardiance) sacubitril 49 mg-valsartan 51 mg 1 tablet PO BID 10/24/22 07/17/23 tablet (Entresto) Allergies Allergy/AdvReac Type Severity Reaction Status Date / Time No Known Allergies Allergy Mild Verified 07/17/23 10:26 Review of Systems Review of Systems: CONSTITUTIONAL: Denies malaise, chills, sweats, or fever. SKIN: Denies rash or itching, open skin, laceration, abrasion, redness, warmth MUSCULOSKELETAL: Reports left hand pain, swelling, bruising NEUROLOGIC: Denies numbness, weakness All systems reviewed & are unremarkable except as noted in HPI and below PMFSH Past Medical History Medical History Alcohol abuse Basal cell carcinoma BMI greater than 40 BMI greater than 40 Cataract Chronic GERD Cough Diarrhea Elevated glucose Elevated glucose Heart failure with preserved ejection fraction Hyperlipidemia Hypertension Leg edema Low vitamin B12 level Morbid (severe) obesity due to excess calories Osteoarthritis of right knee Polyuria Screening for prostate cancer Spinal stenosis Surgical History Surgical History History of knee surgery History of shoulder surgery History of spinal fusion Hx of LASIK Family History Family History Father Pancreatic cancer Mother Osteoporosis Sibling AAA (abdominal aortic aneurysm) Alcohol abuse Sibling Hypertension Other Heart disease Social History Social History Smoking packs per day: 2 Smoking cigarettes per day: 40.0 Years smoked: 30 Smoking pack-years: 60.00 Smoking status: Former smoker Tobacco type: cigarettes Second hand tobacco smoke exposure: Yes Smoking end date: 08/18/20 Alcohol intake: current Drinks per week: 36 Substance use: never Substance use type: does not use Lack of Transportation: No Lack of Food: Never True Current Housing: I Have Housing Concerned About Future Housing: No Difficulty Paying Gas/Electric Bills: No Difficulty Paying for Meds: No Currently Unemployed: No Education: Associate Degree Difficulty w/ Childcare or Family Care: No Living arrangements: with family Occupation/Education: retired Additional occupation/education comments: [employer] [place] Gender identity (if verbalized by the patient): Male Spiritual care concerns: No Comments At time of signature, agree with nursing past medical, surgical, social and family history. There is no relevant family history pertinent to the presenting complaint Exam Narrative: GENERAL: Well-appearing, well-nourished, and in no acute distress. HEAD: Normocephalic, atraumatic. EYES: PERRLA, conjunctivae clear NECK: Supple. CHEST: Speaks in full sentences. No respiratory distress. HEART: Regular rate and rhythm. Normal and equal peripheral pulses. EXTREMITIES: L
== END 2023-07-17 11:41 | disposition home or self-care (01) ==
PROVIDERS: Emergency Provider Nurse Practitioner; PCP Family Medicine
DX: S62.327A Displaced fracture of shaft of fifth metacarpal bone, left hand, initial encounter for closed fracture (principal); W19.XXXA Unspecified fall, initial encounter; K21.9 Gastro-esophageal reflux disease without esophagitis; I11.0 Hypertensive heart disease with heart failure; I50.9 Heart failure, unspecified; E78.5 Hyperlipidemia, unspecified; E66.01 Morbid (severe) obesity due to excess calories; Z68.41 Body mass index [BMI] 40.0-44.9, adult; M17.11 Unilateral primary osteoarthritis, right knee; M48.00 Spinal stenosis, site unspecified; Z85.828 Personal history of other malignant neoplasm of skin; Z87.891 Personal history of nicotine dependence
CPT/HCPCS: 29125; 73130; 99214; G0463

== ENCOUNTER 2023-08-08 09:54 | Outpatient (CLI) | payer MEDICARE, OTHER, SELFPAY ==
--- NOTE | ~2023-08-08 | XR_ITS ---
EXAM: XR hand LT min 3V DATE: 08/08/2023 10:15 HISTORY: FOLLOW UP ON FRACTURE LEFT HAND . COMPARISON: 07/17/2023. FINDINGS: Osseous detail obscured by overlying cast material. Oblique distal left fifth metacarpal f racture mild displacement, unchanged alignment. No definite interval healing change. Polyarticular os teoarthritis, severe at the trapeziometacarpal joint IMPRESSION: Distal left fifth metacarpal fracture in stable alignment, no interval healing noted. Reviewed, dictated and finalized at location K. LATHER IMPRESSION: Distal left fifth metacarpal fracture in stable alignment, no inter katharina healing noted.
== END 2023-08-08 09:55 | disposition home or self-care (01) ==
PROVIDERS: PCP Family Medicine; Visit Provider Plastic Surgery
DX: S62.327D Displaced fracture of shaft of fifth metacarpal bone, left hand, subsequent encounter for fracture with routine healing (principal); X58.XXXD Exposure to other specified factors, subsequent encounter
CPT/HCPCS: 73130

== ENCOUNTER 2023-08-29 10:21 | Outpatient (CLI) | payer MEDICARE, OTHER, SELFPAY ==
--- NOTE | ~2023-08-29 | XR_ITS ---
Left Hand Technique: PA, oblique, and lateral views were obtained. Clinical History: Fracture follow-up COMPARISON: 224 Findings: Routine partial interval healing of oblique fracture of the fifth metacarpal noted. Osseous alignment is stable. Remaining osseous structures and joint spaces are preserved.. There is advanced degenerative change of the first CMC joint. Soft tissues are unremarkable. Impression: Routine partial interval healing of oblique fracture of the fifth metacarpal shaft. 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 Reviewed, dictated and finalized at location M. CAL INSTRUMENT SPECIALIST Impression: Routine partial interval healing of oblique fracture of the fifth metacarpal sh aft. 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
== END 2023-08-29 10:22 | disposition home or self-care (01) ==
PROVIDERS: PCP Family Medicine; Visit Provider Plastic Surgery
DX: S62.329A Displaced fracture of shaft of unspecified metacarpal bone, initial encounter for closed fracture (principal); X58.XXXA Exposure to other specified factors, initial encounter; M19.042 Primary osteoarthritis, left hand
CPT/HCPCS: 73130

== ENCOUNTER 2023-11-07 02:13 | Day surgery (SDC) | payer MEDICARE, OTHER, SELFPAY ==
[2023-10-27 14:42] VITALS: BMI 40.8
--- NOTE | 2023-11-03 11:01 | SUR.PREOP ---
Patient called regarding upcoming procedure. Reviewed preop instructions, appointment times, and procedure prep.
--- NOTE | 2023-11-07 11:51 | WPDANESEPPF ---
Anes - Initial Pre Proc Eval Procedure: Operation Date: 11/07/23 13:00 Proposed Procedures p Esophagogastroduodenoscopy - Wyatt Goodman MD Date/Time: 11/07/23 11:51 Surgeon: Wyatt Goodman MD Pre Op Diagnosis: Irritable bowel syndrome with diarrhea Patient Data Age: 73 Gender: M Height: 1.83 m Weight: 136.5 kg Allergies Allergy/AdvReac Type Severity Reaction Status Date / Time No Known Allergies Allergy Mild Verified 11/07/23 11:43 Home Medications Medication Instructions Recorded Confirmed Type acetaminophen 500 mg tablet 500 mg PO Q6H 10/24/22 10/27/23 History empagliflozin 10 mg tablet 10 mg PO DAILY 10/24/22 10/27/23 History (Jardiance) sacubitril 49 mg-valsartan 51 mg 1 tablet PO BID 10/24/22 10/27/23 History tablet (Entresto) atorvastatin 10 mg tablet 10 mg PO DAILY #90 tabs 01/10/23 10/27/23 Rx metoprolol succinate 100 mg 100 mg PO DAILY #90 tabs 06/30/23 10/27/23 Rx tablet,extended release 24 hr furosemide 40 mg tablet 40 mg PO QAM #90 tabs 07/03/23 10/27/23 Rx omeprazole 20 mg capsule,delayed See Rx Instructions .Route 07/24/23 10/27/23 Rx release .COMPLEX #90 caps cholestyramine (with sugar) 4 gram 4 g PO .AM and HS #60 ea 08/31/23 10/27/23 Rx powder for susp in a packet (Questran) potassium chloride 10 mEq See Rx Instructions .Route 09/04/23 10/27/23 Rx capsule,extended release .COMPLEX #90 caps Patient hx anesthesia problems: none Family hx anesthesia problems: none Results Review: All pre-operative results and documents have been reviewed as part of the pre-operative evaluation. [facility] Past Medical History Medical History (Updated 10/03/23 @ 08:17 by Aysha Gil, KRYSTLE) Alcohol abuse Basal cell carcinoma BMI greater than 40 BMI greater than 40 Cataract Chronic diarrhea Chronic GERD Cough Diarrhea Elevated anti-tissue transglutaminase (tTG) IgA level Elevated glucose Elevated glucose Heart failure with preserved ejection fraction Hx of adenomatous colonic polyps Hyperlipidemia Hypertension Irritable bowel syndrome with diarrhea Leg edema Low vitamin B12 level Morbid (severe) obesity due to excess calories Osteoarthritis of right knee Polyuria Screening for prostate cancer Spinal stenosis Surgical History Surgical History History of knee surgery History of shoulder surgery History of spinal fusion Hx of LASIK Family History Family History Father Pancreatic cancer Mother Osteoporosis Sibling AAA (abdominal aortic aneurysm) Alcohol abuse Sibling Hypertension Other Heart disease Social History Social History Smoking packs per day: 2 Smoking cigarettes per day: 40.0 Years smoked: 30 Smoking pack-years: 60.00 Smoking status: Former smoker Tobacco type: cigarettes Second hand tobacco smoke exposure: Yes Smoking end date: 08/18/20 Alcohol intake: current Drinks per week: 36 Substance use: never Substance use type: does not use Lack of Transportation: No Lack of Food: Never True Current Housing: I Have Housing Concerned About Future Housing: No Difficulty Paying Gas/Electric Bills: No Difficulty Paying for Meds: No Currently Unemployed: No Education: Associate Degree Difficulty w/ Childcare or Family Care: No Living arrangements: with family Occupation/Education: retired Additional occupation/education comments: [employer] [place]. Gender identity (if verbalized by the patient): Male Spiritual care concerns: No Anes - Eval Final PreProcedure Day of Procedure 11/07/23 11:51 Patient weight: morbidly obese Heart: regular rate and rhythm Lungs: clear to auscultation Airway: Mallampati scale class III Neurological: alert and orie
[2023-11-07 11:54] VITALS: BP 184/82; PULSE 62; RESP 18; TEMP 36.2; O2SAT 100
--- NOTE | 2023-11-07 11:59 | PM.HPGS ---
History of Present Illness History of Present Illness Consent: Risks, benefits, and alternatives have been discussed and questions answered. Patient agrees to proceed with procedure. Chief complaint: Irritable bowel syndrome with diarrhea Narrative: Armani Silvestre is a 73 year old male with chronic diarrhea for over 1 year, recent work up showed + serology for celiac disease, no recent EGD. He still has not started gluten free diet Review of Systems Review of Systems: All systems reviewed & are unremarkable except as noted in HPI and below PMFSH Past Medical History Medical History (Updated 11/07/23 @ 12:00 by Wyatt Goodman MD) Alcohol abuse Basal cell carcinoma BMI greater than 40 BMI greater than 40 Cataract Celiac disease Chronic diarrhea Chronic GERD Cough Diarrhea Elevated anti-tissue transglutaminase (tTG) IgA level Elevated glucose Elevated glucose Heart failure with preserved ejection fraction Hx of adenomatous colonic polyps Hyperlipidemia Hypertension Irritable bowel syndrome with diarrhea Leg edema Low vitamin B12 level Morbid (severe) obesity due to excess calories Osteoarthritis of right knee Polyuria Screening for prostate cancer Spinal stenosis Surgical History Surgical History History of knee surgery History of shoulder surgery History of spinal fusion Hx of LASIK Family History Family History Father Pancreatic cancer Mother Osteoporosis Sibling AAA (abdominal aortic aneurysm) Alcohol abuse Sibling Hypertension Other Heart disease Social History Social History Smoking packs per day: 2 Smoking cigarettes per day: 40.0 Years smoked: 30 Smoking pack-years: 60.00 Smoking status: Former smoker Tobacco type: cigarettes Second hand tobacco smoke exposure: Yes Smoking end date: 08/18/20 Alcohol intake: current Drinks per week: 36 Substance use: never Substance use type: does not use Lack of Transportation: No Lack of Food: Never True Current Housing: I Have Housing Concerned About Future Housing: No Difficulty Paying Gas/Electric Bills: No Difficulty Paying for Meds: No Currently Unemployed: No Education: Associate Degree Difficulty w/ Childcare or Family Care: No Living arrangements: with family Occupation/Education: retired Additional occupation/education comments: [employer] [place]. Gender identity (if verbalized by the patient): Male Spiritual care concerns: No Meds Home Medications and Allergies Home Medications Medication Instructions Recorded Confirmed Type acetaminophen 500 mg tablet 500 mg PO Q6H 10/24/22 10/27/23 History empagliflozin 10 mg tablet 10 mg PO DAILY 10/24/22 10/27/23 History (Jardiance) sacubitril 49 mg-valsartan 51 mg 1 tablet PO BID 10/24/22 10/27/23 History tablet (Entresto) atorvastatin 10 mg tablet 10 mg PO DAILY #90 tabs 01/10/23 10/27/23 Rx metoprolol succinate 100 mg 100 mg PO DAILY #90 tabs 06/30/23 11/07/23 Rx tablet,extended release 24 hr furosemide 40 mg tablet 40 mg PO QAM #90 tabs 07/03/23 10/27/23 Rx omeprazole 20 mg capsule,delayed See Rx Instructions .Route 07/24/23 10/27/23 Rx release .COMPLEX #90 caps cholestyramine (with sugar) 4 gram 4 g PO .AM and HS #60 ea 08/31/23 10/27/23 Rx powder for susp in a packet (Questran) potassium chloride 10 mEq See Rx Instructions .Route 09/04/23 10/27/23 Rx capsule,extended release .COMPLEX #90 caps Allergies Allergy/AdvReac Type Severity Reaction Status Date / Time No Known Allergies Allergy Mild Verified 11/07/23 11:53 Exam Const: General: comfortable and no acute distress HENMT: Face/Nose/Sinus: Normal nares present Eyes: General: appearance normal, both eyes and all re
[2023-11-07] MEDS: LACTATED RINGERS 1,000 ML 150 ML IV CONT (12:08)
[2023-11-07 12:26] VITALS: BP 142/69; PULSE 63; RESP 30; O2SAT 100
[2023-11-07 12:36] VITALS: BP 135/58; PULSE 61; RESP 21; O2SAT 99
[2023-11-07 12:46] VITALS: BP 136/66; PULSE 60; RESP 22; O2SAT 100
== END 2023-11-07 12:50 | disposition home or self-care (01) ==
PROVIDERS: PCP Family Medicine; Visit Provider Internal Medicine Gastroenterology
PROC: 0DJ08ZZ Inspection of Upper Intestinal Tract, Via Natural or Artificial Opening Endoscopic (ICD-10-PCS; CPT 43235; principal; 2023-11-07 13:00)
DX: K58.0 Irritable bowel syndrome with diarrhea (principal); E78.5 Hyperlipidemia, unspecified; E53.8 Deficiency of other specified B group vitamins; K90.0 Celiac disease; K21.9 Gastro-esophageal reflux disease without esophagitis; I11.0 Hypertensive heart disease with heart failure; I50.30 Unspecified diastolic (congestive) heart failure; E66.01 Morbid (severe) obesity due to excess calories; Z68.41 Body mass index [BMI] 40.0-44.9, adult; Z98.1 Arthrodesis status; Z98.890 Other specified postprocedural states; Z79.84 Long term (current) use of oral hypoglycemic drugs; Z87.891 Personal history of nicotine dependence; Z85.828 Personal history of other malignant neoplasm of skin; Z86.010 Personal history of colon polyps; Z80.0 Family history of malignant neoplasm of digestive organs; Z82.49 Family history of ischemic heart disease and other diseases of the circulatory system
CPT/HCPCS: 43239; 88305; J2704; J7120

== ENCOUNTER 2024-07-11 11:00 | Outpatient (RCR) | payer MEDICARE, OTHER, SELFPAY ==
--- NOTE | 2024-06-17 14:59 | OPREHPOC ---
Outpatient Therapy Plan of Care This is a Multidisciplinary Plan of Care that may contain components documented by all disciplines (PT, OT, and ST.) PT Problem 1 PT Problem #1 Knowledge Deficit PT Goal 1 Goal / Goal Update [place] with HEP PT Goal 2 Goal / Goal Update Report 20% improvement in Oswestry back index Target Visit 8 PT Problem 2 PT Problem #2 Impaired Range of Motion PT Goal 1 Goal / Goal Update Improve shauna ankle dorsiflexion to 10+ degrees to improve terminal stance and reduce short striding Target Visit 8 PT Goal 2 Goal / Goal Update Improve shauna hip abduction ROM to 40 degrees to reduce capsular restriction with extension and lateral mobility Target Visit 8 PT Problem 3 PT Problem #3 Impaired Flexibility PT Goal 1 Goal / Goal Update Demonstrate minimal piriformis restriction bilaterally to reduce sciatic and lumbar irritation with hip rotational activity Target Visit 8 PT Goal 2 Goal / Goal Update Achieve terminal R knee extension to even gait cycle and stride Target Visit 8
--- NOTE | 2024-06-17 14:59 | PTOPEVAL1 ---
Assessment and note entered by Barry Garcia, PT Evaluation Information Assessment Status Evaluation Diagnosis Midline Low back pain, History of lumbar spinal fusion Onset December 2023 Subjective Information Reports that he is having low back pain on both sides but a little worse on the right. Pain never travels past lateral hips. Reports that sitting too long increases his pain but also walking too far increases his pain as well. He was doing fairly well after therapy last year, but since he had his last cortisone injection he has noted some increased pain. 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 Reported Pain Level Pain Score 0: Self Report Assessment PT Clinical Summary Patient presents with bilateral back pain increased with mobility after sedentary activity and with over activity. Presents with poor hip mobility/flexibility and increased pain with activity related to increased hip mobility. Patient will benefit form skilled therapy to address these deficits to improve gait, flexibility, and reduce lumbar stress. Plan of Care Interventions Gait Training,Manual Therapy,Neuro Re-education, Therapeutic Activities,Therapeutic Exercise PT Services Indicated Yes Treatment Frequency and 2x/week for 8 visits Duration These treatments will address the objective and functional deficits as defined above. The patient will be advanced safely and appropriately in order for the patient to progress towards his/her prior level of function. Additional exercises will be introduced and as well as a comprehensive home exercise program upon discharge, if needed, ?to ensure carryover of functional gains achieved in the clinic. This treatment plan has been reviewed and agreement upon by the patient.
--- NOTE | 2024-06-19 13:31 | PCPTNOTE ---
Called and canceled, not feeling well. AKS
--- NOTE | 2024-07-11 17:57 | OPREHPOC ---
Outpatient Therapy Plan of Care This is a Multidisciplinary Plan of Care that may contain components documented by all disciplines (PT, OT, and ST.) PT Problem 1 PT Problem #1 Knowledge Deficit PT Goal 1 Goal / Goal Update [place] with HEP Progress Met PT Goal 2 Goal / Goal Update Report 20% improvement in Oswestry back index Target Visit 8 Progress Not Met PT Problem 2 PT Problem #2 Impaired Range of Motion PT Goal 1 Goal / Goal Update Improve shauna ankle dorsiflexion to 10+ degrees to improve terminal stance and reduce short striding Target Visit 8 Progress Not Met PT Goal 2 Goal / Goal Update Improve shauna hip abduction ROM to 40 degrees to reduce capsular restriction with extension and lateral mobility Target Visit 8 Progress Not Met PT Problem 3 PT Problem #3 Impaired Flexibility PT Goal 1 Goal / Goal Update Demonstrate minimal piriformis restriction bilaterally to reduce sciatic and lumbar irritation with hip rotational activity Target Visit 8 Progress Not Met PT Goal 2 Goal / Goal Update Achieve terminal R knee extension to even gait cycle and stride Target Visit 8 Progress Not Met
--- NOTE | 2024-07-11 17:57 | PTOPDC ---
Assessment and note entered by Barry Garcia, PT Evaluation Information Assessment Status Progress Diagnosis Midline Low back pain, History of lumbar spinal fusion Onset December 2023 Subjective Information Reports that overall he is still struggling with pain. Does not feel he is seeing an improvement in intensity or frequency at this time. For the first couple of days after therapy he is seeing some mild increase in intensity. Reported Pain Level Pain Score 1: Self Report Assessment PT Clinical Summary Patient has had a lot of difficulty with pain at this time and has not felt much progress with therapy. At times basic exercise have increased his pain causing him pain for a couple days following therapy. We have not had a lot of extensive activity at this time and have been limited in progression. Discussed possibility of patient trying injections as he has been offered this in past. Will discharge at this time to [facility]. Plan of Care PT Services Indicated Yes
== END 2024-08-22 16:43 | disposition home or self-care (01) ==
LOC: ANHPT 11:00
PROVIDERS: PCP Family Medicine; Visit Provider Family Medicine
DX: M54.50 Low back pain, unspecified (principal); G89.29 Other chronic pain; Z98.1 Arthrodesis status
CPT/HCPCS: 97014; 97110; 97140; 97161; 97530; G0283

== ENCOUNTER 2024-12-05 02:32 | Day surgery (SDC) | payer MEDICARE, OTHER, SELFPAY ==
[2024-11-21 14:52] VITALS: BMI 40.6
--- OUTSIDE RECORDS SUMMARY | 2024-12-05 02:35 | XMS_ITS | Continuity of Care Document ---
Author Organization [facility] Address [address] [facility] [address] [place] [address] Phone Care Team Providers Care Drafter Cartographic Name Role Phone Simon Martin MD Unavailable [...] TIENT VISIT, EST [facility], [address] [place] [address] 201, [place], [place], [id number], [place] tel:[phone] O[facility] CON[facility]ULT [facility] YAG (chief complaint) Presence of intraocular lensVitreous degeneration, bilateralDerm atochalasis of eyelidHyperte nsionPCO (posterior capsular opacification ), left 5 Mario Simon. [address] [facility], [address], [place], [place], [id number], [place]. tel:[phone] Referring Provider: Family Lenny Hooker [facility], [address] [place] [address], [place], [place], [id number], [place] tel:[phone] OPH CONSULT [facility] Post-Op (chief complaint) Presence of intraocular lens 4 Mario Simon. [address] [facility], [address], [place], [place], [id number], [place]. tel:[phone] Referring Provider: Family Lenny Hooker [facility], [address] [place] [address], [place], [place], [id number], [place] tel:[phone] OPH CONSULT [facility] Post-Op (chief complaint) Age-related nuclear cataract, left eye 4 Ursula Jcaobs. [address], [address], [place], [place], [address], [place]. tel:[phone] Referring Provider: Family Lenny Hooker [facility], [address] [place] [address], [place], [place], [id number], [place] tel:[phone] [facility] No Information 4 Mario Simon. [address] [facility], [address], [place], [place], [address], [place]. tel:[phone] Referring Provider: Family Lenny Hooker OFFICE/OUTPA TIENT VISIT, EST [facility], [address] [place] [address] 201, [place], [place], [id number], [place] tel:[phone] OPH CONSULT [facility] Pseudophakia check (chief complaint)dry gritty eyes (chief complaint) Age-related nuclear cataract, left eyeVitreous degeneration, bilateralDerm atochalasis of eyelidPseudop hakiaHyperten melania 4 Mario Simon. [address] [facility], [address], [place], [place], [address], [place]. tel:[phone] Referring Provider: Family Lenny Hooker OFFICE/OUTPA TIENT VISIT, [facility], [id number] [place] [address], [place], [place], [id number], [place] tel:[phone] OPH CONSULT [facility] cataract check (chief complaint) Age-related nuclear cataract, left eyePseudophak iaDermatochal asis of eyelidVitreou s degeneration, bilateral 3 Mario Simon. [address] [facility], [address], [place], [place], [address], [place]. tel:[phone] Referring Provider: Family Lenny Hooker [facility] [address], [place], [place], [address], [place] tel:[phone] [facility] CONSULT [facility] No Information 3 Tammie Mendez. [address], [address], [place], [place], [address], [place]. tel:[phone] Family History Family Member Type Diagnosis Age At Onset Paternal aunt Problem degenerative disorder of ma cula Mother Problem hypertension Payers Payer name Insurance type Covered green party ID Authorallie nielsen(s) [place] MB [id number] [facility] [place] [id number] Social History Type Description Quantity Date Captured [...] Reason For Visit From encounter dated '09/03/2024 12:50'. YAG (chief complaint). Description: The 74 year [...] counseling completed Goal Tobacco cessation counseling completed History Of Present Illness Encounter Date Complaint [...] OD. [facility]i [facility] referralPatient states vision is blurry OS, not really much improvement. Post-Op Additional infor mation: 1 day PO OS Target unknown/Distance? OD done previously, S/p YAG as well OD. Pred [facility]i [facility]Patient states vision is blurry OS, denies [...] Related to Hyper tension Impression/Plan Related to Emlyn tochalasis of eyelid Impression/Plan Related to Prese nce of intraocular lens Impression/Plan Related to Age-r elated nuclear cataract, left eye Impression/Plan Related to Pseud ophakia Impression/Plan Related to Emlyn tochalasis of eyelid Impression/Plan Related to Vitre ous degeneration, bilateral Impression/Plan Related to Age-r elated nuclear cataract, left eye Impression/Plan Related to Hyper tension Impression/Plan Related to Vitre ous degeneration, bilateral Impression/Plan Related to Emlyn tochalasis of eyelid Impression/Plan Related to Age-r [...]
--- OUTSIDE RECORDS SUMMARY | 2024-12-05 02:35 | XMS_ITS | Clinical Summary ---
Author Organization [facility] Address [address] [place] [address] Care Team Providers Care Breakfast Hostess Name Role Phone Kristian Lee MD Primary Care Provider [phone] Social History Tobacco Use Types Packs/Day Years Used Date Smoking Tobacco: Never Assessed Sex and Gender Information Value Date Recorded Sex Assigned at Not on file Legal Sex Male 8:27 PM CDT Gender Identity Not on file Sexual Orientation Not on file Plan of Treatment Health Maintenance Due Date Last Done Comments Colorectal Cancer Screening Colonoscopy (10 Years) 1952 Hepatitis C 1970 DTaP, Tdap and Td Vaccines ( 1 - Tdap) 1971 Pneumococcal Vaccine: 50+ Ye ars (1 of 1 - PCV) 2002 Zoster Vaccines (1 of 2) 2002 COVID-19 Vaccine ( - 2023-2 5 season) 2024 RSV Immunization or 60+ Years (1 - 1-dose 75+ series) 2027 Meningococcal B Vaccine Aged Out No l onger eligible based on patient's age to complete this topic Meningococcal Vaccine Aged Out No irene alisha eligible based on patient's age to complete this topic RSV Immunizations Under 20 Months Aged Out No longer eligible based on patient's age to complete this topic Care Teams Breakfast Hostess Relationship Specialty Start Date End Date Kristian Lee MD [address] [place] [address] PCP - General 03/19/12
--- OUTSIDE RECORDS SUMMARY | 2024-12-05 02:35 | XMS_ITS | Clinical Summary ---
Author Organization [facility] Address [address] [place] [address] Care Team Providers Care Reading Tutor Name Role Phone Kristian Lee MD Primary Care Provider [phone] Source Comments [facility],non-owned Affiliates and Associated Physician Practices is amultiple site organization consisting of ambulatory clinics and hospital sitesin [place], [place], [place] and [place]. This disclosure is being madepursuant to the Care Everywhere program and may not contain all information available regarding this patient. Last updated 18.[facility] [place] Social History Tobacco Use Types Packs/Day Years Used Date Smoking Tobacco: Never Assessed Sex and Gender Information Value Date Recorded Sex Assigned at Not on file Legal Sex Male 3:21 PM CDT Gender Identity Not on file Sexual Orientation Not on file Plan of Treatment Health Maintenance Due Date Last Done Comments COLOGUARD (AGES 45-75) - COL ON CA SCREENING 1952 COLON MONITORING 1952 COLONOSCOPY - COLON CA SCREENING 1952 CT COLONOGRAPHY - COLON CA SCREENING 1952 Colorectal Cancer Screening 1952 FIT - COLON CA SCREENING 1952 FLEX SIG - COLON CA SCREENING 1952 LIPID TESTING 1950 MEDICARE AWV 12 MONTHS 1952 HEPATITIS C SCREENING 03/26/1970 DTAP/TDAP/TD VACCINES (1 - Tdap) 1971 PNEUMOCOCCAL VACCINE 50+ (1 of 1 - PCV) 2002 ZOSTER VACCINE (1 of 2) 2002 COVID-19 VACCINE ( - 2023-2 5 season) 2024 DEPRESSION SCREENING 08/07/2024 INFLUENZA VACCINE (Season Ended) 2025 Respiratory Syncytial Virus (RSV) Vaccine Pt: or over 60 yrs (1 - 1-dose 75+ series) 2027 HEPATITIS B VACCINE Aged Out No longe r eligible based on patient's age to complete this topic HIB VACCINE Aged Out No longer eligi ble based on patient's age to complete this topic HPV VACCINE Aged Out No longer eligi ble based on patient's age to complete this topic MENINGOCOCCAL (Group B) VACC INE SHARED DECISION-MAKING Aged Out No longer eligibl e based on patient's age to complete this topic MENINGOCOCCAL GROUPS A/C/Y/W VACCINE Aged Out No longer eligible b ased on patient's age to complete this topic Insurance CARE [facility] MEDICARE [facility] MEDICARE [employer] [place] SPECIAL[place] MEDICARE [facility] SPECIALTY RISK Care Teams Reading Tutor Relationship Specialty Start Date End Date Kristian Lee MD [address] [place] [address] PCP - General 01/08/21
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
--- OUTSIDE RECORDS SUMMARY | 2024-12-05 02:35 | XMS_ITS | Encounter Summary ---
Author Organization [facility] Address [address] [place] [address] Care Team Providers Care Grounds Person Name Role Phone Kristian Lee MD Primary Care Provider Encounter Details Date Type Department Care Team (Late st Contact Info) Description 02/21/2024 Lab Requisition [facility] - DermPath Lab [address], [place] [id number] Camila Daniel DO [address] [facility] [address] [place] [address] Social History Tobacco Use Types Packs/Day Years Used Date Smoking Tobacco: Never Assessed Sex and Gender Information Value Date Recorded Sex Assigned at Not on file Legal Sex Male 3:21 PM CDT Gender Identity Not on file Sexual Orientation Not on file documented as of this encounter Plan of Treatment Not on file documented as of this encounter Procedures Procedure Name Priority Date/Time Associated Diagnosis Comments DERMATOPATHOLOGY Routine 02/21/2024 10:1 1 AM CDT documented in this encounter Results * DERMATOPATHOLOGY (02/21/2024 10:11 AM CDT) Case Report Dermatopathology Report Case: [id number] Authorizing Provider: Camila Daniel DO Collected: 02/21/2024 10:11 AM Ordering Location: [facility] - Received: 02/22/2024 08:53 AM DermPath Lab Pathologist: Carissa Calderon MD Specimens: A) - Skin, left medial knee B) - Skin, right forearm 1:59 PM CDT DERMATOPATHOLOGY LABORATORY Final Diagnosis Specimen A. SKIN, left medial knee: DERMATOFIBROMA (D23.9) Specimen B. SKIN, right forearm: DERMATOFIBROMA WITH SEBACEOUS INDUCTION (D23.9) 4 1:59 PM CDT DERMATOPATHOLOGY LABORATORY Clinical History A-B: DF r/o atypia 1:59 PM CDT DERMATOPATHOLOGY LABORATORY Gross Description Specimen A: Received is one formalin filled container labeled with the patient's name and designated left medial knee. The specimen consists of a shave biopsy measuring 6x5x1 mm. Jar 0. Specimen B: Received is one formalin filled container labeled with the patient's name and designated right forearm. The specimen consists of a shave biopsy measuring 7x5x1 mm. Jar 0. 1:59 PM CDT DERMATOPATHOLOGY LABORATORY Microscopic Description Specimen A. SKIN, left medial knee: There is epidermal hyperplasia. Within the dermis, there are fibrohistiocytic cells in haphazard array among coarse collagen bundles. Specimen B. SKIN, right forearm: Sections show a proliferation of spindled and stellate cells set amongst thickened collagen bundles. The overlying epidermis is acanthotic, and enlarged but normally formed sebaceous lobules are present near the epidermal-dermal junction. 1:59 PM CDT DERMATOPATHOLOGY LABORATORY Disclaimer An external and internal positive and negative controls are appropriate for the histochemical, immunohistochemical and immunofluorescence stain(s) in this case (if any), except where stated explicitly. The performance characteristics of the stain(s) cited in this report were developed and its performance characteristic determined by the Dermatopathology Laboratory at [facility], directed by Dr. Rosetta Donis. These tests need not be, and therefore are not, approved by the [place] Food and Drug Administration. The tests are used for clinical purposes. Billing Codes Specimen Charges Stain Charges 02902 58046 1 1 4 1:59 PM CDT DERMATOPATHOLOGY LABORATORY Embedded Images 1:59 PM CDT DERMATOPATHOLOGY LABORATORY Pathology/Cytology TISSUE SPECIMEN FROM SKIN / Unknown 02/21/2024 10:11 AM CDT 02/22/2024 8:53 AM CDT Miscellaneous samples (specimen) TISSUE SPECIMEN FROM SKIN / Unknown 02/21/2024 10:11 AM CDT 02/22/2024 8:53 AM CDT us Camila Daniel DO LAB - PATHOLOGY/CYTOLOGY ORDERABLES Final Result DERMATOPATHOLOGY LABORATORY [facility] - Department of Dermatology [facility] Specialized Medicine [address] [place] [address], [address] [phone] documented in this encounter Visit Diagnoses Not on filedocumented in this encounter Care Teams Grounds Person Relationship Specialty Start Date End Date Kristian Lee MD [address] [place] [address] PCP - General 01/08/21 documented as of this encounter
--- OUTSIDE RECORDS SUMMARY | 2024-12-05 02:36 | XMS_ITS | Clinical Summary ---
Author Organization [facility] [address] Address [address] [place] [address] Care Team Providers Care Ui Ux Developer Name Role Phone Tej Irby MD Primary Care Provider [phone] Allergies No known active allergies Medications omeprazole (PriLOSEC) 20 mg capsule Take by mouth daily 2 Active atorvastatin (LIPITOR) 10 mg tablet Take 10 mg by mouth daily 2 Active cyanocobalamin (Vitamin B-12) 500 mcg tablet Take 500 mcg by mouth daily Active furosemide (LASIX) 20 mg tablet furosemide 20 mg tablet TAKE 1 TABLET BY MOUTH EVERY DAY IN THE MORNING Active potassium chloride ER 10 mEq CR capsule Take 10 mEq by mouth daily 2 Active NIFEdipine XL 90 mg 24 hr tablet Take 90 mg by mouth daily 2 Active metoprolol XL (TOPROL-XL) 100 mg 24 hr tablet Take 100 mg by mouth daily 2 Active empagliflozin (JARDIANCE) 10 mg tablet Take 1 tablet (10 mg total) by mouth daily 30 tablet 11 2 Active Entresto 49-51 mg tablet TAKE 1 TABLET BY MOUTH TWICE A DAY 180 tablet 1 3 Active Active Problems Problem Noted Date Diagnosed Date Morbid (severe) obesity due to excess calories 0 04/26/2022 Body mass index 40.0-44.9, adult (CMS/HCC) 04/26 Ear ringing 01/29/2013 Asymmetrical sensorineural hearing loss 01/30/20 13 Arthralgia of hip 01/11/2011 Medical History Medical History Date Comments Cancer (HCC) GERD (gastroesophageal reflux disease) Hypertension Hyperlipidemia Family History Medical History Relation Name Comments Heart disease Other Hypertension Other Pancreatic cancer Other Relation Name Status Comments Other Social History Tobacco Use Types Packs/Day Years Used Date Smoking Tobacco: Former Tobacco Cessation:Counseling Given: Not Answered Personal Safety Answer Date Recorded Getting School Help Needed Not on file 10/05 Sex and Gender Information Value Date Recorded Sex Assigned at Not on file 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 Gender Identity Not on file Sexual Orientation Not on file Obstetrics History Last Filed Vital Signs Vital Sign Reading Time Taken Comments Blood Pressure 124/76 06/08/2022 2:26 PM CDT Pulse 71 06/08/2022 2:26 PM CDT Temperature - - Respiratory Rate 18 04/26/2022 10:17 AM CDT Oxygen Saturation 97% 06/08/2022 2:26 PM CDT Inhaled Oxygen Concentration - - Weight 144.2 kg (318 lb) 06/08/2022 2:26 PM CDT Height 182.9 cm (6') 06/08/2022 2:26 PM CDT Body Mass Index 43.13 06/08/2022 2:26 PM CDT Plan of Treatment Health Maintenance Due Date Last Done Comments Colon Cancer Screening-Colonoscopy 1952 Depression Screening 1952 Fall Risk Assessment 1952 Hepatitis C Screening 1952 DTaP/Tdap/Td Vaccine (1 - Tdap) 1963 Hepatitis B Screening 1970 Pneumococcal vaccine 65+ (1 of 1 - PCV) 2002 Zoster Vaccine (1 of 2) 2002 Abdominal Aortic Aneurysm (AAA) Screen 2017 Well Visit 65+ 2017 Covid-19 Vaccine ( season) 2024, 09/17/2020 Influenza Vaccine (#1) 2024 Insurance MEDICARE [facility] Care Teams Ui Ux Developer Relationship Specialty Start Date End Date Tej Irby MD PCP - General Family Medicine 04/06/22
--- OUTSIDE RECORDS SUMMARY | 2024-12-05 02:36 | XMS_ITS | Clinical Summary ---
Author Organization [facility] Address [address] [place] [address] Phone Care Team Providers Care It Network Engineer Name Role Phone Kristian Lee MD Primary Care Provider Allergies No known active allergies Medications omeprazole (PriLOSEC) 20 mg Capsule, Delayed Release(E.C.) omeprazole 20 mg capsule,delayed release TAKE 1 CAPSULE BY MOUTH EVERY DAY Active atorvastatin (LIPITOR) 10 mg tablet atorvastatin 10 mg tablet TAKE 1 TABLET BY MOUTH EVERY DAY Active metoprolol succinate (TOPROL XL) 100 mg Extended Release 24 hour tablet metoprolol succinate ER 100 mg tablet,extended release 24 hr Active potassium chloride (MICRO-K EXTENCAPS) 10 mEq Extended Release capsule potassium chloride ER 10 mEq capsule,extended release TAKE 1 CAPSULE BY MOUTH EVERY DAY Active cyanocobalamin (vit B-12) 500 mcg tablet Take 500 mcg by mouth daily. Active Entresto 49-51 mg Tablet Take 1 Tablet by mouth 2 times daily. Active empagliflozin (Jardiance) 10 mg tablet Take 10 mg by mouth daily in the morning. Active acetaminophen (TYLENOL) 500 mg tablet Take 1,000 mg by mouth every 6 hours as needed. Active polycarbophil calcium (FIBERCON) 625 mg tablet Take 625 mg by mouth 2 times daily. 1 in am I in pm Active amLODIPine (NORVASC) 5 mg tablet Take 1 Tablet by mouth daily. 5 Active Cholestyramine- Sucrose 4 gram Powder TAKE 4G BY MOUTH IN THE MORNING AND AT BEDTIME W/MEALS AVOID OTHER MEDS 1H BEFORE OR 4-6H AFTER DOSE 5 Active furosemide (LASIX) 40 mg tablet Take 40 mg by mouth daily in the morning. Active Active Problems Problem Noted Date Diagnosed Date Spondylosis of lumbar region without myelopathy or radiculopathy 09/02/2024 Chronic systolic congestive heart failure 2022 Essential hypertension 03/20/2023 Dyslipidemia 03/20/2023 DONNELL (obstructive sleep apnea) 03/20/2023 Primary osteoarthritis of right knee 03/20/2023 Morbid (severe) obesity due to excess calories 0 04/26/2022 Encounters Date Type Department Care Team Description 11/07/2024 10:30 AM CDT Office Visit [facility] Spine and Pain Management at the [address] [place] [address] Chelsey Jean, TOBIAS History of lumbar spinal fusion (Primary Dx); Chronic midline low back pain without sciatica; Trochanteric bursitis of both hips 11/05/2024 External Device Data STL ABSTRACTION Provider, Abstract 10/23/2024 External Device Data STL ABSTRACTION Provider, Abstract 10/16/2024 External Device Data STL ABSTRACTION Provider, Abstract 10/15/2024 External Device Data STL ABSTRACTION Provider, Abstract 10/12/2024 External Device Data STL ABSTRACTION Provider, Abstract 10/12/2024 External Device Data STL ABSTRACTION Provider, Abstract 10/10/2024 Telephone [facility] Spine and Pain Management at the [address] [place] [address] Jerardo Guillen MD Abstract 10/08/2024 External Device Data STL ABSTRACTION Provider, Abstract 10/04/2024 Abstract [facility] Spine and Pain Management at the [address] [place] [address] Jerardo Guillen MD 10/04/2024 Orders Only [facility] Spine and Pain Management at the [address] [place] [address] Jerardo Guillen MD 10/03/2024 11:25 AM WEDDING MAKEUP ARTIST - 10/03/2024 11:48 AM WEDDING MAKEUP ARTIST Surgery [facility] Outpatient Surgery Center [address] [place] [address] Jerardo Guillen MD SACROILIAC NERVE RADIOFREQUENCY ABLATION 10/03/2024 10:57 AM WEDDING MAKEUP ARTIST - 10/03/2024 11:59 PM WEDDING MAKEUP ARTIST Hospital Encounter [facility] Radiology [address] [place] [address] Jerardo Guillen MD Discharge Disposition: Home or Self Care 10/03/2024 10:38 AM WEDDING MAKEUP ARTIST - 10/03/2024 11:44 AM WEDDING MAKEUP ARTIST Hospital Encounter [facility] [address] [place] [address] Jerardo Guillen MD Chronic midline low back pain without sciatica Discharge Disposition: Home or Self Care 10/02/2024 Orders Only [facility] Spine and Pain Management at the [facility] [address] [place] [address] Jerardo Guillen MD 10/02/2024 Orders Only [facility] Spine and Pain Management at the [facility] Medicine [address] [place] [address] Jerardo Guillen MD 09/30/2024 Orders Only [facility] Spine and Pain Management at the [facility] Medicine [address] [place] [address] Jerardo Guillen MD 09/27/2024 Telephone [facility] Spine and Pain Management at the [facility] Medicine [address] [place] [address] Jerardo Guillen MD Wants Appointment 09/27/2024 Orders Only [facility] Spine and Pain Management at the [facility] Medicine [address] [place] [address] Jerardo Guillen MD 09/27/2024 Orders Only [facility] Spine and Pain Management at the [facility] Medicine [address] [place] [address] Jerardo Guillen MD 09/26/2024 Orders Only [facility] Spine and Pain Management at the [facility] [address] [place] [address] Jerardo Guillen MD 09/25/2024 External Device Data STL ABSTRACTION Provider, Abstract 09/25/2024 Orders Only [facility] Spine and Pain Management at the [facility] [address] [place] [address] Jerardo Guillen MD 09/25/2024 Orders Only [facility] Spine and Pain Management at the [facility] [address] [place] [address] Jerardo Guillen MD 09/18/2024 Abstract [facility] Spine and Pain Management at the [facility] [address] [place] [address] Jerardo Guillen MD 09/18/2024 Orders Only [facility] Spine and Pain Management at the [facility] [address] [place] [address] Jerardo Guillen MD 09/16/2024 9:10 AM WEDDING MAKEUP ARTIST - 09/16/2024 11:59 PM WEDDING MAKEUP ARTIST Hospital Encounter [facility] Radiology [address] [place] [address] Jerardo Guillen MD Discharge Disposition: Home or Self Care 09/16/2024 9:01 AM WEDDING MAKEUP ARTIST - 09/16/2024 9:18 AM WEDDING MAKEUP ARTIST Surgery [facility] Outpatient Surgery Center [address] [place] [address] Jerardo Guillen MD FACET MEDIAL BRANCH BLOCK LUMBAR OR SACRAL 09/16/2024 8:42 AM WEDDING MAKEUP ARTIST - 09/16/2024 9:43 AM WEDDING MAKEUP ARTIST Hospital Encounter [facility] [address] [place] [address] Jerardo Guillen MD Chronic midline low back pain without sciatica Discharge Disposition: Home or Self Care 09/16/2024 Telephone [facility] Spine and Pain Management at the [address] [place] [address] Jerardo Guillen MD [facility] 09/12/2024 Orders Only [facility] Spine and Pain Management at the [address] [place] [address] Jerardo Guillen MD 09/10/2024 Orders Only [facility] Spine and Pain Management at the [address] [place] [address] Jerardo Guillen MD from Last 3 Months Social History Tobacco Use Types Packs/Day Years Used Date Smoking Tobacco: Former Cigarettes Q uit: 1980 Smokeless Tobacco: Never Tobacco Cessation:Counseling Given: Not Answered Alcohol Use Standard Drinks/Week Comments Yes 7 (1 standard drink = 0.6 oz pur e alcohol) Feeling Safe Answer Date Recorded Are you in a relationship wi th someone who hurts you emotionally and/or physically? No 10/03/2024 Food Insecurity Answer Date Recorded Social/Environmental Concerns No concerns Transportation Needs Answer Date Record ed Social/Environmental Concerns No concerns Housing Stability Answer Date Recorded Social/Environmental Concerns No concerns Utility Needs Answer Date Recorded Social/Environmental Concerns No concerns Sex and Gender Information Value Date Recorded Sex Assigned at Not on file Legal Sex Male 7:32 PM WEDDING MAKEUP ARTIST Gender Identity Not on file Sexual Orientation Not on file Last Filed Vital Signs Vital Sign Reading Time Taken Comments Blood Pressure 182/81 11/07/2024 10:24 AM CDT Pulse 68 11/07/2024 10:24 AM CDT Temperature 36.3 C (97.4 F) 09/16/2024 9:00 AM WEDDING MAKEUP ARTIST Respiratory Rate 18 11/07/2024 10:24 AM CDT Oxygen Saturation 100% 11/07/2024 10:24 AM CDT Inhaled Oxygen Concentration - - Weight 138.8 kg (306 lb) 11/07/2024 10:24 AM CDT Height 182.9 cm (6') 10/03/2024 10:46 AM WEDDING MAKEUP ARTIST Body Mass Index 41.5 10/03/2024 10:46 AM WEDDING MAKEUP ARTIST Plan of Treatment Upcoming Encounters Date Type Department Care Team (Late st Contact Info) Description 12/11/2024 10:45 AM CDT Office Visit [facility] Orthopedic Surgery at the [facility] [address] [place] [address] Apoorva Luz PA-C [address] [facility] [address] [place] [address] Health Maintenance Due Date Last Done Comments DTAP/TDAP/TD VACCINES (1 - Tdap) 1971 PNEUMOCOCCAL VACCINE 50+ YEA RS (1 of 2 - PCV) 1971 FIT-DNA Q 3 years 1997 FIT/FOBT Q 1 year 1997 Flex Sig/CT Colonography Q 5 years 1997 ZOSTER VACCINE (1 of 2) 2002 RSV VACCINE (60+ or ) (1 - Risk 60-74 years 1-dose series) 2012 Abdominal Aortic Aneurysm (AAA) Screening 2017 INFLUENZA VACCINE (#1) 2024 COLORECTAL SCREENING 02/14/2033 02/14/2023, 02/15/20 23 Colorectal Cancer Screening 02/14/2033 Medical Devices Implanted Type Area Disability Rater Device Identifier Shelf Expiration Date Model / Serial / Lot Cement R Refobacin 1x40gm [id number] - [id number] Implanted:Qty : 2 on 03/20/2023 by Mark Reilly MD at [facility] Cement Right: Knee [employer]I [employer] [id number] 04/06/2023 [id number] / / [id number] Comp Fem Vanguard Cr Interlock Rt 72.5mm [id number] - [id number] Implanted:Qty : 1 on 03/20/2023 by Mark Reilly MD at [facility] Knee Right: Knee [employer] [id number] 12/14/2032 [id number] / / [id number] Stem Tib Prim Finned [id number] - [id number] Implanted:Qty : 1 on 03/20/2023 by Mark Reilly MD at [facility] Knee Right: Knee [employer] [id number] 04/19/2032 [id number] / / [id number] Bearing Tib Vanguard Ant Stblzd [id number] - [id number] Implanted:Qty : 1 on 03/20/2023 by Mark Reilly MD at [facility] Knee Right: Knee [employer] [id number] 01/22/2028 [id number] / / [id number] Biomet Knee System Primary Tibial Modular Tray Juvenile Justice Officer With Locking Bar 79mm Implanted:Qty : 1 on 03/20/2023 by Mark Reilly MD at [facility] Right: Knee [id number] 07/07/2031 [id number] / / [id number] Procedures Procedure Name Priority Date/Time Associated Diagnosis Comments XR FLUORO NEEDLE GUIDANCE SPINE Routine 10/03/2024 11:26 AM WEDDING MAKEUP ARTIST PA DSTR NROLYTC AGNT PARVERTEB FCT SNGL LMBR/SACRAL 10/03/2024 11:25 AM WEDDING MAKEUP ARTIST Chronic midline low back pain without sciatica History of lumbar spinal fusion XR FLUORO NEEDLE GUIDANCE SPINE Routine 09/16/2024 9:30 AM WEDDING MAKEUP ARTIST PA NJX DX/THER AGT PVRT FACET JT LMBR/SAC 1 LEVEL 09/16/2024 9:01 AM WEDDING MAKEUP ARTIST Chronic midline low back pain without sciatica History of lumbar spinal fusion from Last 3 Months Results * XR FLUORO NEEDLE GUIDANCE SPINE (10/03/2024 11:26 AM WEDDING MAKEUP ARTIST) Only the most recent of2 resultswithin the time period is included. Narrative 10/03/2024 11:26 AM WEDDING MAKEUP ARTIST Order information only. Exam was auto-finalized. us Jerardo Guillen MD DIAGNOSTIC IMAGING OR DERABLES Final Result from Last 3 Months Insurance MEDICARE PART A AND B [facility] RX [employer] RX Member Subscriber Plan / Payer (Ef fective 2019-Present) Name:Armani Silvestre Relation to Subscriber:Self Name:Armani Silvestre Payer ID:Not on file Group ID:[id number] Type:RX Commercial Address: [address] RX CRAIN PLANS (INTERNAL) [facility] Internal Plans Advance Directives For more information, please contact: [phone] * Full Code (Latest Code Status on File) Date Activated Date Inactivated Comments 03/20/2023 12:08 PM 03/21/2023 1:01 PM * Full Code Date Activated Date Inactivated Comments 03/20/2023 6:55 AM 03/20/2023 12:08 PM Care Teams It Network Engineer Relationship Specialty Start Date End Date Kristian Lee MD [address] [place] [address] PCP - General 10/04/12 Ko Mejias [address] [place] [address] [place] [address] Grain Farmer 02/21/23
--- OUTSIDE RECORDS SUMMARY | 2024-12-05 02:36 | XMS_ITS | Referral Summary ---
Author Organization [facility] [address] Address [address] [place] [address] Care Team Providers Care Silk Finisher Name Role Phone Tej Irby MD Primary Care Provider [phone] Allergies No known active allergies Medications omeprazole [...] 0 04/26/2022 Body mass index 40.0-44.9, adult ([facility]) 04/26 Ear ringing 01/29/2013 Asymmetrical sensorineural hearing loss 01/30/20 13 Arthralgia of hip 01/11/2011 Social History Tobacco Use Types Packs/Day Years Used Date Smoking Tobacco: Former Tobacco Cessation:Counseling Given: Not Answered Personal Safety Answer Date Recorded Getting School Help Needed Not on file 10/05 Sex and Gender Information Value Date Recorded Sex Assigned at Not on file Legal Sex Male 2:06 AM ATTORNEY RECRUITER Gender Identity Not on file Sexual Orientation [...] 06/08/2022 2:26 PM CDT Plan of Treatment Not on file Insurance MEDICARE [facility] [place] [id number] Care Teams Silk Finisher Relationship Specialty Start Date End Date Tej Irby MD PCP - General Family Medicine 04/06/22
--- NOTE | 2024-12-05 09:14 | P.PNAN_ITS ---
Anes - Initial Pre Proc Eval Procedure: Operation Date: 12/05/24 10:30 Proposed Procedures p Esophagogastroduodenoscopy - Wyatt Goodman MD Date/Time: 12/05/24 09:14 Surgeon: Wyatt Goodman MD Pre Op Diagnosis: Celiac disease Patient Data Age: 74 Gender: M Height: 1.83 m Weight: 136.1 kg Allergies Allergy/AdvReac Type Severity Reaction Status Date / Time No Known Allergies Allergy Mild Verified 12/05/24 09:14 Home Medications ?Medication ?Instructions ?Recorded ?Confirmed ?Type acetaminophen 500 mg tablet 500 mg PO Q6H 10/24/22 12/05/24 History empagliflozin 10 mg tablet 10 mg PO DAILY 10/24/22 12/05/24 History (Jardiance) sacubitril 49 mg-valsartan 51 mg 1 tablet PO BID 10/24/22 12/05/24 History tablet (Entresto) atorvastatin 10 mg tablet 10 mg PO DAILY #90 tabs 06/29/24 12/05/24 Rx metoprolol succinate 100 mg 100 mg PO DAILY #90 tabs 06/29/24 12/05/24 Rx tablet,extended release 24 hr omeprazole 20 mg capsule,delayed See Rx Instructions .Route 07/21/24 12/05/24 Rx release .COMPLEX #90 caps potassium chloride 10 mEq See Rx Instructions .Route 09/16/24 12/05/24 Rx capsule,extended release .COMPLEX #90 caps furosemide 40 mg tablet 40 mg PO QAM #90 tabs 11/10/24 12/05/24 Rx cholestyramine (with sugar) 4 gram See Rx Instructions .Route 11/20/24 11/21/24 Rx powder for susp in a packet .COMPLEX #180 packets amlodipine 5 mg tablet 5 mg PO DAILY 11/21/24 12/05/24 History Patient hx anesthesia problems: none Family hx anesthesia problems: none Results Review: All pre-operative results and documents have been reviewed as part of the pre- operative evaluation. [facility] Past Medical History Medical History (Updated 12/04/24 @ 14:31 by Marquez Wilcox DO) CHF (congestive heart failure) EF 60-65% Celiac disease Elevated anti-tissue transglutaminase (tTG) IgA level Irritable bowel syndrome with diarrhea Chronic diarrhea Hx of adenomatous colonic polyps Morbid (severe) obesity due to excess calories Elevated glucose Polyuria Diarrhea Heart failure with preserved ejection fraction Elevated glucose Screening for prostate cancer Cough BMI greater than 40 Low vitamin B12 level BMI greater than 40 Osteoarthritis of right knee Alcohol abuse Leg edema Chronic GERD Hypertension Hyperlipidemia Spinal stenosis Cataract Basal cell carcinoma Surgical History Surgical History History of spinal fusion History of shoulder surgery Hx of LASIK History of knee surgery Family History Family History Father Pancreatic cancer Mother Osteoporosis Sibling AAA (abdominal aortic aneurysm) Alcohol abuse Sibling Hypertension Other Heart disease Social History Social History (Updated 11/04/24 @ 13:07 by Verito Hamm [facility]) Smoking packs per day: 2 Smoking cigarettes per day: 40.0 Years smoked: 30 Smoking pack-years: 60.00 Smoking status: Former smoker Tobacco type: cigarettes Second hand tobacco smoke exposure: Yes Alcohol intake: current Drinks per week: 30 Alcohol use details: beer Substance use: never Substance use type: does not use Current Housing: Decline to Answer Concerned About Future Housing: Decline to Answer Difficulty Paying Gas/Electric Bills: Decline to Answer Difficulty Paying for Meds: Decline to Answer Currently Unemployed: Decline to Answer Education: Decline to Answer Difficulty w/ Childcare or Family Care: Decline to Answer Living arrangements: with family Occupation/Education: retired Additional occupation/education comments: [employer] [place] Gender identity (if verbalized by the patient): Male Spiritual care concerns: No Anes - Eval Final PreProcedure Day of Procedure 12/05/24 09:14 Patient weight: morbidly obese Heart: regular rate and rhythm Lungs: clear to auscultation Airway: Mallampati scale class III Neurological: alert and oriented Last oral intake: >/= 8 hours ASA classification: IV Emergent: no Anesthetic plan: proceed Anesthesia type and monitoring: general GIVS and standard monitoring Results Review: All pre-operative results and documents have been reviewed as part of the pre- operative evaluation. Informed Consent: The patient's anesthetic plan and its attendant risks and benefits were discussed with the patient/family/POA. Questions were solicited and answers provided to the satisfaction of the patient/family/POA.
[2024-12-05 09:15] VITALS: BP 179/84; PULSE 65; RESP 18; TEMP 36.3; O2SAT 98; BMI 41.2
[2024-12-05] MEDS: LACTATED RINGERS 1,000 ML 150 ML IV CONT (09:27)
--- NOTE | 2024-12-05 09:38 | PM.HPGS ---
History of Present Illness History of Present Illness Consent: Risks, benefits, and alternatives have been discussed and questions answered. Patient agrees to proceed with procedure. Chief complaint: Celiac disease Narrative: Armani Silvestre is a 74 year old male with betancourt's in 2023, using omeprazole. He also had abnormal serology c/w celiac but duodenal biopsies normal last time, he currently does not have diarrhea, he does not necessarily follow a gluten free diet Review of Systems Review of Systems: All systems reviewed & are unremarkable except as noted in HPI and below [facility] Past Medical History Medical History (Updated 12/04/24 @ 14:31 by Marquez Wilcox DO) CHF (congestive heart failure) EF 60-65% Celiac disease Elevated anti-tissue transglutaminase (tTG) IgA level Irritable bowel syndrome with diarrhea Chronic diarrhea Hx of adenomatous colonic polyps Morbid (severe) obesity due to excess calories Elevated glucose Polyuria Diarrhea Heart failure with preserved ejection fraction Elevated glucose Screening for prostate cancer Cough BMI greater than 40 Low vitamin B12 level BMI greater than 40 Osteoarthritis of right knee Alcohol abuse Leg edema Chronic GERD Hypertension Hyperlipidemia Spinal stenosis Cataract Basal cell carcinoma Surgical History Surgical History History of spinal fusion History of shoulder surgery Hx of LASIK History of knee surgery Family History Family History Father Pancreatic cancer Mother Osteoporosis Sibling AAA (abdominal aortic aneurysm) Alcohol abuse Sibling Hypertension Other Heart disease Social History Social History (Updated 11/04/24 @ 13:07 by Verito Hamm CMA) Smoking packs per day: 2 Smoking cigarettes per day: 40.0 Years smoked: 30 Smoking pack-years: 60.00 Smoking status: Former smoker Tobacco type: cigarettes Second hand tobacco smoke exposure: Yes Alcohol intake: current Drinks per week: 30 Alcohol use details: beer Substance use: never Substance use type: does not use Current Housing: Decline to Answer Concerned About Future Housing: Decline to Answer Difficulty Paying Gas/Electric Bills: Decline to Answer Difficulty Paying for Meds: Decline to Answer Currently Unemployed: Decline to Answer Education: Decline to Answer Difficulty w/ Childcare or Family Care: Decline to Answer Living arrangements: with family Occupation/Education: retired Additional occupation/education comments: [employer] [place]. Gender identity (if verbalized by the patient): Male Spiritual care concerns: No Meds Home Medications and Allergies Home Medications ?Medication ?Instructions ?Recorded ?Confirmed ?Type acetaminophen 500 mg tablet 500 mg PO Q6H 10/24/22 12/05/24 History empagliflozin 10 mg tablet 10 mg PO DAILY 10/24/22 12/05/24 History (Jardiance) sacubitril 49 mg-valsartan 51 mg 1 tablet PO BID 10/24/22 12/05/24 History tablet (Entresto) atorvastatin 10 mg tablet 10 mg PO DAILY #90 tabs 06/29/24 12/05/24 Rx metoprolol succinate 100 mg 100 mg PO DAILY #90 tabs 06/29/24 12/05/24 Rx tablet,extended release 24 hr omeprazole 20 mg capsule,delayed See Rx Instructions .Route 07/21/24 12/05/24 Rx release .COMPLEX #90 caps potassium chloride 10 mEq See Rx Instructions .Route 09/16/24 12/05/24 Rx capsule,extended release .COMPLEX #90 caps furosemide 40 mg tablet 40 mg PO QAM #90 tabs 11/10/24 12/05/24 Rx cholestyramine (with sugar) 4 gram See Rx Instructions .Route 11/20/24 11/21/24 Rx powder for susp in a packet .COMPLEX #180 packets amlodipine 5 mg tablet 5 mg PO DAILY 11/21/24 12/05/24 History Allergies Allergy/AdvReac Type Severity Reaction Status Date / Time No Known Allergies Allergy Mild Verified 12/05/24 09:14 Vital Signs Vital Signs - 24 hr 12/05/24 09:15 Temperature 97.3 F L Pulse Rate 65 Respiratory Rate 18 Blood Pressure 179/84 H Pulse Oximetry 98 Oxygen Delivery Room Air Exam Const: General: comfortable and no acute distress HENMT: Face/Nose/Sinus: Normal nares present Eyes: General: appearance normal, both eyes and all related structures Neck: Neck: no JVD Resp: Auscultation: clear to auscultation bilaterally Cardio: Rate: regular rate Rhythm: regular rhythm GI: Inspection: non-distended GI Palp: Yes Soft to palpation Skin: General skin exam: normal color Neuro: Speech: normal speech Extrem: General: normal to inspection Psych: Mental Status: mental status grossly normal Assessment and Plan Assessment and plan (1) Barretts esophagus: Code(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
[2024-12-05 09:56] VITALS: BP 158/79; PULSE 57; RESP 18; O2SAT 97
[2024-12-05 10:06] VITALS: BP 138/59; PULSE 56; RESP 20; O2SAT 95
[2024-12-05 10:16] VITALS: BP 136/65; PULSE 55; RESP 15; O2SAT 98
== END 2024-12-05 10:30 | disposition home or self-care (01) ==
PROVIDERS: PCP Family Medicine; Referring Provider Internal Medicine Gastroenterology; Visit Provider Internal Medicine Gastroenterology
PROC: 0DJ08ZZ Inspection of Upper Intestinal Tract, Via Natural or Artificial Opening Endoscopic (ICD-10-PCS; CPT 43239; principal; 2024-12-05 10:30)
DX: K22.70 Barrett's esophagus without dysplasia (principal); K90.0 Celiac disease; K44.9 Diaphragmatic hernia without obstruction or gangrene; Z87.891 Personal history of nicotine dependence; E66.01 Morbid (severe) obesity due to excess calories; Z68.41 Body mass index [BMI] 40.0-44.9, adult
CPT/HCPCS: 43239; 88305; J2003; J2704; J7120

== ENCOUNTER 2025-04-09 13:30 | Outpatient (RCR) | payer MEDICARE, OTHER, SELFPAY ==
--- NOTE | 2025-03-03 10:03 | OPREHPOC ---
Outpatient Therapy Plan of Care This is a Multidisciplinary Plan of Care that may contain components documented by all disciplines (PT, OT, and ST.) PT Problem 1 PT Problem #1 Knowledge Deficit PT Goal 1 Goal / Goal Update *independent with HEP Target Visit 10 PT Problem 2 PT Problem #2 Pain PT Goal 1 Goal / Goal Update 1* pt report pain at worst of 4/10 2* pt report standing/walking tolerance of 20 minutes Target Visit 10 PT Problem 3 PT Problem #3 Impaired Strength PT Goal 1 Goal / Goal Update increase strength of R and L hips and trunk, to improve stability to lumbar spine and hips: 1* hip abduction strength of 4/5 2* hip extension strength of 4/5 single leg standing x 6 seconds with good stability 3* R 4* L Target Visit 10 PT Problem 4 PT Problem #4 Impaired Range of Motion PT Goal 1 Goal / Goal Update increase hip ROM to decrease strain and pull on lumbar spine and hip hamstring length with supine SLR 1* R 65' 2* L 65' anterior hip-quad with prone knee flexion to 110' 3* R 4* L
--- NOTE | 2025-03-03 10:03 | PTOPEVAL1 ---
Assessment and note entered by Sheyla Benavides, PT Evaluation Information Assessment Status Evaluation ICD-10 Condition Codes (PT) Pain in low back M54.50,Pain in right hip M25.551, Pain in left hip M25.552 Other ICD-10 Condition Codes ( trochanteric bursitis [id number], M 70.62 PT) Onset past year Subjective Information in the past year, injections in back no longer help the pain; had pain management for back, had back ablation- helped some; no recent imaging; previously done and report bilateral hip OA; saw ortho dr about hips, did not say anything about THR; problems doing stairs, need the hand railing; walking outside in grass is hard; had PT here in the past for back pain- stim helped ; activity: retired; do not do any exercises for his back Reported Pain Level Pain Score Self Report Additional Pain Score Comments at rest no pain in back, R or L hips pain range in the past week 0-7/10; R hip pain > L ; sharp pain lateral hips; increase pain: standing, walking- activity 10-15 min tolerance; stairs decrease pain: over the counter meds, sit/rest Assessment PT Clinical Summary Armani has the diagnosis of lumbar pain and bilateral hip pain/trochanteric bursitis. Back Index self rating of 64% limitation in activity level. Walking and standing tolerance ~ 10 minutes due to pain. He is retired and tries to stay active. Medical history includes: lumbar surgery, lumbar ablation, R TKR. With the evaluation: he has weakness of R and L hip abduction and extension muscles, with tightness over hamstrings, anterior hip-quad muscles; poor standing position of spine. Skilled PT services are indicated for modalities to decrease pain; therapeutic exercises to stretch and strengthen hips and trunk with education for HEP, body mechanics and posture. Plan of Care Interventions Electrical Stimulation,Hot Pack/Cold Pack,Manual Therapy,Mechanical Traction,Neuro Re-education, Patient/Caregiver Education,Therapeutic Activities ,Therapeutic Exercise,Ultrasound,Other Other Interventions taping PT Services Indicated Yes Treatment Frequency and 1-2x/wk for 10 visits Duration These treatments will address the objective and functional deficits as defined above. The patient will be advanced safely and appropriately in order for the patient to progress towards his/her prior level of function. Additional exercises will be introduced and as well as a comprehensive home exercise program upon discharge, if needed, ?to ensure carryover of functional gains achieved in the clinic. This treatment plan has been reviewed and agreement upon by the patient.
--- NOTE | 2025-04-09 14:09 | OPREHPOC ---
Outpatient Therapy Plan of Care This is a Multidisciplinary Plan of Care that may contain components documented by all disciplines (PT, OT, and ST.) PT Problem 1 PT Problem #1 Knowledge Deficit PT Goal 1 Goal / Goal Update *independent with HEP 04-09-25 d/c goal met Target Visit 10 Progress Met PT Problem 2 PT Problem #2 Pain PT Goal 1 Goal / Goal Update 1* pt report pain at worst of 10 2* pt report standing/walking tolerance of 20 minutes 04-09-25 d/c goal 2 met; #1 met for back but not L hip 12/14 Target Visit 10 Progress Partially Met PT Problem 3 PT Problem #3 Impaired Strength PT Goal 1 Goal / Goal Update increase strength of R and L hips and trunk, to improve stability to lumbar spine and hips: 1* hip abduction strength of 4/5 2* hip extension strength of 4/5 single leg standing x 6 seconds with good stability 3* R 4* L 04-09-25 d/c goals 1,2,4 met Target Visit 10 Progress Partially Met PT Problem 4 PT Problem #4 Impaired Range of Motion PT Goal 1 Goal / Goal Update increase hip ROM to decrease strain and pull on lumbar spine and hip hamstring length with supine SLR 1* R 65' 2* L 65' anterior hip-quad with prone knee flexion to 110' 3* R 4* L 04-09-25 d/c goals met 3,4; 1 & 2 is 50' Target Visit 10 Progress Partially Met
--- NOTE | 2025-04-09 14:10 | PTOPDC ---
Assessment and note entered by Sheyla Benavides, PT Assessment Status Discharge ICD-10 Condition Codes (PT) Pain in low back M54.50,Pain in right hip M25.551, Pain in left hip M25.552 Other ICD-10 Condition Codes ( trochanteric bursitis [id number], M 70.62 PT) Onset past year Subjective Information pain is better, now comes and goes, is less; sleeping is still a problem with lying on the sides; have been doing the exercises and have learned some things to do to help my back; Reported Pain Level Pain Score 0,0: Self Report Additional Pain Score Comments pain range in the past week: back 0-2/10 & L hip 0 -5/10; standing/walking tolerance reported at 20 minutes with sleeping, awaken from pain 2-3x/night Assessment PT Clinical Summary Armani has received a total of 10 PT sessions. He has improved in all areas, except flexibility of bilateral hamstrings & R hip IR in supine increases pain: today with: pain rating of back at 0-2/10 and L hip 0-5/10; reported sleeping awaken 2-3x/night due to pain and walking/standing tolerance of 20 minutes; in supine, pain increase with R hip IR motion only; increase flexibility of R and L anterior hip-quad and piriformis; increase strength of R and L LE and single leg standing R 6 and L 2 seconds; education completed for HEP, body mechanics and pain management. The goals were partially met. Discharge PT. He is to continue with HEP and monitor activity level to manage pain. Plan of Care PT Services Indicated No
== END 2025-04-09 16:30 | disposition home or self-care (01) ==
LOC: ANHPT 13:30
PROVIDERS: PCP Family Medicine
DX: M70.61 Trochanteric bursitis, right hip (principal); M70.62 Trochanteric bursitis, left hip; M51.361 Other intervertebral disc degeneration, lumbar region with lower extremity pain only; M54.50 Low back pain, unspecified
CPT/HCPCS: 97110; 97140; 97161; 97530

== ENCOUNTER 2025-05-09 09:48 | Outpatient (CLI) | payer MEDICARE, OTHER, SELFPAY ==
--- OUTSIDE RECORDS SUMMARY | 2024-09-03 06:50 | XMS_ITS | Continuity of Care Document ---
Author Organization [facility] Address [address] [place] [address] Phone Care Team Providers Care Reel Worker Name Role Phone Simon Martin MD Unavailable Unavailable Allergies, Adverse Reactions, Alerts Substance Reaction Status Criticality No Known Allergies Active No Inform ation Medications Medication Instructions Dosage Effective Dates (start - stop) Status Comments potassium chloride ER 10 mEq capsule,extended release - Active atorvastatin 10 mg tablet - Active furosemide 40 mg tablet - Active Entresto 49 mg-51 mg tablet TAKE 1 TABLET BY MOUTH TWICE A DAY - Active Jardiance 10 mg tablet - Act elana metoprolol succinate ER 100 mg tablet,extended release 24 hr TAKE 1 TABLET BY MOUTH EVERY DAY - Active Procedures Procedure Date OFFICE/OUTPATIENT VISIT, EST POSTOP FOLLOW-UP VISIT POSTOP FOLLOW-UP VISIT CATARACT SURG W/IOL, 1 STAGE OFFICE/OUTPATIENT VISIT, EST OPHTHALMIC BIOMETRY/IOL MASTER CORNEAL TOPOGRAPHY SMART DROPS BOTH EYES OFFICE/OUTPATIENT VISIT, NEW OPSCPY EXTND RTA DRAW UNI/BI Advance Directives Directive Yes / No Effective Date File Name No Information Encounters Encounter Description Practice Location Reason(s) For Visit Diagnoses Date Provider Providers Copied on Encounter OFFICE/OUTPA TIENT VISIT, EST [facility], [address] [place] [address], [place], [place], [id number], [place] tel:[phone] [facility] YAG (chief complaint) Presence of intraocular lensVitreous degeneration, bilateralDerm atochalasis of eyelidHyperte nsionPCO (posterior capsular opacification ), left 5 Mario Simon. [address] [address] [facility] [address], [address], [place], [place], [id number], [place]. tel:[phone] Referring Provider: Family Lenny Hooker [facility], [address] [place] [address], [place], [place], [id number], [place] tel:[phone] [facility] Post-Op (chief complaint) Presence of intraocular lens 4 Mario Simon. [address] [facility] [facility], [address], [place], [place], [id number], [place]. tel:[phone] Referring Provider: Family Lenny Hooker [facility], [address] [place] [address], [place], [place], [id number], [place] tel:[phone] [facility] Post-Op (chief complaint) Age-related nuclear cataract, left eye 4 Ursula Jacobs. [address], [address], [place], [place], [id number], [place]. tel:[phone] Referring Provider: Family Lenny Hooker [facility], [address] [place] [address], [place], [place], [id number], [place] tel:[phone] [facility] No Information 4 Mario Simon. [address] [facility] [address], [address], [place], [place], [id number], [place]. tel:[phone] Referring Provider: Family Lenny Hooker OFFICE/OUTPA TIENT VISIT, EST [facility], [address] [place] [address], [place], [place], [id number], [place] tel:[phone] [facility] Pseudophakia check (chief complaint)dry gritty eyes (chief complaint) Age-related nuclear cataract, left eyeVitreous degeneration, bilateralDerm atochalasis of eyelidPseudop hakiaHyperten melania 4 Mario Simon. [address] [facility], [address], [place], [place], [id number], [place]. tel:[phone] Referring Provider: Family Lenny Hooker OFFICE/OUTPA TIENT VISIT, [facility], [id number] [place] [address], [place], [place], [id number], [place] tel:[phone] [facility] cataract check (chief complaint) Age-related nuclear cataract, left eyePseudophak iaDermatochal asis of eyelidVitreou s degeneration, bilateral 3 Mario Simon. [address] [facility], [address], [place], [place], [id number], [place]. tel:[phone] Referring Provider: Family Lenny Hooker [facility] [address], [place], [place], [id number], [place] tel:[phone] [facility] No Information 3 Tammie Mendez. [address] [facility] [address] [facility], [address], [place], [place], [address], [place]. tel:[phone] Family History Family Member Type Diagnosis Age At Onset Paternal aunt Problem degenerative disorder of ma c[place] Mother Problem hypertension Payers Payer name Insurance type Covered alliance party ID Authorallie nielsen(s) [place] [id number] [facility] [id number] Social History Type Description Quantity Date Captured Comments Alcohol Use Details Unknown Caffeine Use Details Unknown Tobacco Use Status No Information Smoking Status Former smoker Smoking Tobacco Use Details Cigarette: No Details Available Cigarette: No Details Available Non-Smoking Tobacco Use Details : No Details Available : No Details Available Sex Male Vital Signs Date / Time: Height Weight BMI Pulse Rate Blood Pressure Temperature Respiratory Rate Body Surface Area Head Circumference Head Circ. Percentile Wt./Alejandro. Percentile BMI percentile Pulse Ox Inhaled Ox 12:38 PM 72.00 in 142.882 kg (315.00 lbs) 42.7 2 kg/m eter (2) Chief Complaint And Reason For Visit From encounter dated '09/03/2024 11:50'. YAG (chief complaint). Description: The 74 year old male presents for evaluation of YAG. Patient states OS vision has been blurry since about a month after cataract sx. Patient avoids driving at night due to glare from headlights. Patient is not taking any gtts. Reason For Referral Reason For Referral No Information Plan Of Treatment Date Type Action Status Goal Tobacco cessation counseling completed Goal Tobacco cessation counseling completed Appointment Armani Silvestre BOOKED History Of Present Illness Encounter Date Complaint History Of Prese nt Illness YAG The 74 year old male presents for evaluation of YAG. Patient states OS vision has been blurry since about a month after cataract sx. Patient avoids driving at night due to glare from headlights. Patient is not taking any gtts. Post-Op Additional infor mation: 1 week PO OS Target unknown/Distance? OD done previously, S/p YAG as well OD. Pred Moxi Brom OS TID, [facility] referralPatient states vision is blurry OS, not really much improvement. Post-Op Additional infor mation: 1 day PO OS Target unknown/Distance? OD done previously, S/p YAG as well OD. Pred Moxi Brom OS TID, AT's [facility] referralPatient states vision is blurry OS, denies pain. Pseudophakia check The 73 year o ld male presents for evaluation of Pseudophakia check in the right eye and left eye. It affects OU. He is PCIOL OD and S/P Yag PC OD. He states his VA is good. His glasses are still working well. dry gritty eyes The patient is p resent for evaluation of dry gritty eyes in the right eye and left eye. It affects OU. He states his eyes are very dry and gritty at times. He does not use any drops at this time. cataract check The 72 year old male presents for evaluation of cataract check OS, several months ago was told he has a cataract in OS, has noticed vision in the left eye has become blurrier and continues to get worse, doesn't like to drive at night due to problems with glare, vision in OD is good-he had a cat sx back in 2018, eyes are comfortable today Functional Status Date Functional Assessmen t No Information Instructions Date Instruction Additional Infor enrique Impression/Plan Related to Vitre ous degeneration, bilateral Impression/Plan Related to Prese nce of intraocular lens Impression/Plan Related to PCO ( posterior capsular opacification), left Impression/Plan Related to Hyper tension Impression/Plan Related to [place] tochalasis of eyelid Impression/Plan Related to Prese nce of intraocular lens Impression/Plan Related to Age-r elated nuclear cataract, left eye Impression/Plan Related to Hyper tension Impression/Plan Related to Pseud ophakia Impression/Plan Related to [place] tochalasis of eyelid Impression/Plan Related to Vitre ous degeneration, bilateral Impression/Plan Related to Age-r elated nuclear cataract, left eye Impression/Plan Related to Vitre ous degeneration, bilateral Impression/Plan Related to [place] tochalasis of eyelid Impression/Plan Related to Age-r elated nuclear cataract, left eye Impression/Plan Related to Pseud ophakia Assessments Type Assessment Date assessment Presence of intraocular lens Aug impression Presence of intraocu lar lens: Z96.1.s/p PCIOL OU (OS done 2023 w/ JA-OD elsewhere)s/p YAG OD only assessment Vitreous degeneration, bilateral impression Vitreous degeneration, bilateral : H43.813 assessment Dermatochalasis of eyelid impression Dermatochalasis of eyelid: H02.8 39 assessment Hypertension impression Hypertension: I10 assessment PCO (posterior capsular opacific ation), left impression PCO (posterior capsular opacific ation), left: H26.492 Patient Care Teams Name Effective Dates (start - stop) Status Members No Information
--- OUTSIDE RECORDS SUMMARY | 2025-05-09 09:54 | XMS_ITS | Clinical Summary ---
Author Organization [facility] Address [address] [place] [address] Phone Care Team Providers Care Hi Teacher Name Role Phone Kristian Lee MD Primary [...] mg by mouth daily in the morning. 5 Active methylPREDNISol one (MEDROL DOSPACK) 4 mg Tablets, Dose Pack Medrol dosepak as directed. 21 Tablet 5 Active Active Problems Problem Noted Date Diagnosed Date Spondylosis of lumbar region without myelopathy or radiculopathy 09/02/2024 Chronic systolic congestive heart failure 2022 Essential hypertension 03/20/2023 Dyslipidemia 03/20/2023 DONNELL (obstructive sleep apnea) 03/20/2023 Primary osteoarthritis of right knee 03/20/2023 Morbid (severe) obesity due to excess calories 0 04/26/2022 Encounters Date Type Department Care Team Description 04/09/2025 External Device Data ST[facility] ABSTRACTION Provider, Abstract 04/08/2025 External Device Data ST[facility] ABSTRACTION Provider, Abstract 03/25/2025 External Device Data [facility] ABSTRACTION Provider, Abstract 02/19/2025 External Device Data ST[facility] ABSTRACTION Provider, Abstract 02/19/2025 External Device Data [place] ABSTRACTION Provider, Abstract 02/19/2025 External Device Data ST[facility] ABSTRACTION Provider, Abstract from Last 3 Months Social History Tobacco [...] on file Legal 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 Gender Identity Not on file Sexual Orientation Not on file Last Filed Vital Signs Vital Sign Reading Time Taken Comments Blood Pressure 182/81 11/07/2024 10:24 AM CDT Pulse 68 11/07/2024 10:24 AM CDT Temperature 36.3 C (97.4 F) 09/16/2024 9:00 AM PRODUCTION CONTROL EXPEDITER Respiratory Rate 18 11/07/2024 10:24 AM CDT Oxygen Saturation 100% 11/07/2024 10:24 AM CDT Inhaled Oxygen Concentration - - Weight 138.8 kg (306 lb) 12/11/2024 10:52 AM CDT Height 182.9 cm (6') 12/11/2024 10:52 AM CDT Body Mass Index 41.5 12/11/2024 10:52 AM CDT Plan of Treatment Health Maintenance Due [...] Aneurysm (AAA) Screening 2017 INFLUENZA VACCINE (#1) 2025 COLORECTAL SCREENING 02/14/2033 02/14/2023, 02/15/20 23 Colorectal Cancer Screening 02/14/2033 Medical Devices Implanted Type Area Photographers' Model Device Identifier Shelf Expiration Date Model / Serial / Lot Cement R Refobacin 1x40gm [id number] - [id number] Implanted:Qty : 2 on 03/20/2023 by Mark Reilly MD at [facility] Cement Right: Knee MARI BIOMET [id number] 04/06/2023 [id number] / / [id number] Comp Fem Vanguard Cr Interlock Rt 72.5mm [id number] - [id number] Implanted:Qty : 1 on 03/20/2023 by Mark Reilly MD at [facility] Knee Right: Knee MARI BIOMET [id number] 12/14/2032 [id number] / / [id number] Stem Tib Prim Finned [id number] - [id number] Implanted:Qty : 1 on 03/20/2023 by Mark Reilly MD at [facility] Knee Right: Knee MARI BIOMET [id number] 04/19/2032 [id number] / / [id number] Bearing Tib Vanguard Ant Stblzd [id number] - [id number] Implanted:Qty : 1 on 03/20/2023 by Mark Reilly MD at [facility] Knee Right: Knee MARI BIOMET [id number] 01/22/2028 [id number] / / [id number] Biomet Knee System Primary Tibial Modular Tray Equipment Detailer With Locking Bar 79mm Implanted:Qty : 1 on 03/20/2023 by Mark Reilly MD at [facility] Right: Knee [id number] 07/07/2031 [id number] / / [id number] Insurance MEDICARE PART A AND B [facility] RX [employer] RX Member Subscriber Plan / Payer (Ef fective 2019-Present) Name:Armani Silvestre Relation to Subscriber:Self Name:Armani Silvestre Payer ID:Not on file Group ID:[id number] Type:RX Commercial Address: [address] RX CRAIN PLANS (INTERNAL) [facility] Internal Plans Advance Directives For more information, please contact: [phone] * Full Code (Latest Code Status on File) Date Activated Date Inactivated Comments 03/20/2023 12:08 PM 03/21/2023 1:01 PM * Full Code Date Activated Date Inactivated Comments 03/20/2023 6:55 AM 03/20/2023 12:08 PM Care Teams Hi Teacher Relationship Specialty Start Date End Date Kristian Lee MD [address] [place] [address] PCP - General 10/04/12 [address] Me[address]ias [address] [place] [address] Dr [address], [place] [address] Edge Beader 02/21/23
--- OUTSIDE RECORDS SUMMARY | 2025-05-09 09:54 | XMS_ITS | Clinical Summary ---
Author Organization [facility] Address [address] [place] [address] Care Team Providers Care Automotive Worker Foreman Name Role Phone Kristian Lee MD Primary Care Provider [phone] Social History Tobacco Use Types Packs/Day Years [...] Vaccines (1 of 2) 2002 COVID-19 Vaccine (1 - 2023-2 5 season) 2025 RSV Immunization or 60+ Years (1 - [...] age to complete this topic Care Teams Automotive Worker Foreman Relationship Specialty Start Date End Date Kristian Lee MD [address] [place] [address] PCP - General 03/19/12
--- OUTSIDE RECORDS SUMMARY | 2025-05-09 09:54 | XMS_ITS | Encounter Summary ---
Author Organization [facility] Address [address] [facility] [place] [address] Care Team Providers Care Sephora Product Consultant Name Role Phone Kristian Lee MD Primary Care Provider Encounter Details Date Type Department Care Team (Late st Contact Info) Description 02/21/2024 Lab Requisition [facility] - DermPath Lab [address] [facility], [place] [id number] Camila Daniel DO [address] [facility] 3 [place] [address] Social History Tobacco Use Types Packs/Day Years [...] AM CDT) Case Report Dermatopathology Report Case: [id number] Authorizing Provider: Camila Daniel DO Collected: 02/21/2024 10:11 AM Ordering Location: [facility] - Received: 02/22/2024 08:53 AM DermPath Lab Pathologist: Carissa Calderon MD Specimens: A) - Skin, left medial knee B) - Skin, right forearm 1:59 PM CDT DERMATOPATHOLOGY LABORATORY Final Diagnosis Specimen A. SKIN, left medial knee: DERMATOFIBROMA (D23.9) Specimen B. SKIN, right forearm: DERMATOFIBROMA WITH SEBACEOUS INDUCTION (D23.9) 4 1:59 PM CDT DERMATOPATHOLOGY LABORATORY at 1359 CDT Clinical History A-B: DF r/o atypia 1:59 [...] characteristic determined by the Dermatopathology Laboratory at [facility], directed by Dr. Rosetta Donis. These tests need not be, and therefore are not, approved by the [place] Food and Drug Administration. The tests are used for clinical purposes. Billing Codes Specimen Charges Stain Charges 74657 12945 1 1 4 1:59 PM CDT DERMATOPATHOLOGY LABORATORY Embedded Images 4 1:59 PM CDT DERMATOPATHOLOGY LABORATORY Pathology/Cytology TISSUE SPECIMEN FROM SKIN / Unknown 02/21/2024 10:11 AM CDT 02/22/2024 8:53 AM CDT Miscellaneous samples (specimen) TISSUE SPECIMEN FROM SKIN / Unknown 02/21/2024 10:11 AM CDT 02/22/2024 8:53 AM CDT us Camila Daniel DO LAB - PATHOLOGY/CYTOLOGY ORDERABLES Final Result DERMATOPATHOLOGY LABORATORY [facility] - Department of Dermatology [facility] Specialized Medicine [address] [place] [address], [address] [phone] documented in this encounter Visit Diagnoses Not on filedocumented in this encounter Care Teams Sephora Product Consultant Relationship Specialty Start Date End Date Kristian Lee MD [address] [place] [address] PCP - General 01/08/21 documented as of this encounter
--- OUTSIDE RECORDS SUMMARY | 2025-05-09 09:54 | XMS_ITS | Clinical Summary ---
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
--- OUTSIDE RECORDS SUMMARY | 2025-05-09 09:54 | XMS_ITS | Clinical Summary ---
Author Organization [facility] Address [address] [address] [place] [address] Care Team Providers Care Studio Control Operator Name Role Phone Kristian Lee MD Primary Care Provider [phone] Source Comments [facility],non-owned Affiliates and Associated Physician Practices is amultiple site organization consisting of ambulatory clinics and hospital sitesin [place], [place], [place] and [place]. This disclosure is being madepursuant to the Care Everywhere program and may not contain all information available regarding this patient. Last updated 18.[facility] [employer] Social History Tobacco Use Types Packs/Day Years [...] 2002 ZOSTER VACCINE (1 of 2) 2002 DEPRESSION SCREENING 08/07/2024 COVID-19 VACCINE ( - 2023-2 5 season) 2025 INFLUENZA VACCINE (#1) 2025 Respiratory Syncytial Virus (RSV) Vaccine Pt: [...] patient's age to complete this topic Insurance MEDICARE [facility] SPECIAL[facility] RISK SELF PAY NO INSURANCE Member Subscriber Plan / Payer (Ef fective for All Dates) Name:Dodie Freeman Member ID:Not on file Relation to Subscriber:Not on file Name:OZIELUCIANADODIE Subscriber ID:Not on file (Home) Address: [address] [place] [address] Payer ID:Not on file Group ID:Not on file Type:Self Pay Address: [place], [place] [employer] HEALTH CARE HEALTH CARE MEDICARE [place] MEDICARE [facility] MEDICARE [place] SPECIALTY RISK MEDICARE [place] SPECIALTY RISK MEDICARE [facility] Care Teams Studio Control Operator Relationship Specialty Start Date End Date Kristian Lee MD [address] [place] [address] PCP - General 01/08/21
--- OUTSIDE RECORDS SUMMARY | 2025-05-09 09:54 | XMS_ITS | Encounter Summary ---
Author Organization [facility] Address [address] [place] [address] Care Team Providers Care Probation Officer Name Role Phone Kristian Lee MD Primary Care Provider + [phone] Reason for Visit * Reason Onset Date Comments PERCENTAGES 09/16/2024 Encounter Details Date Type Department Care Team (Late st Contact Info) Description 09/16/2024 Telephone [facility] at the [facility] [address] [place] [address] Jerardo Guillen MD [address] [facility] [place] [address] PERCENTAGES Social History Tobacco Use [...] on file 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 CH COUPLER documented in this encounter Plan of Treatment Not on file documented as of this encounter Visit Diagnoses Not on filedocumented in this encounter Care Teams Probation Officer Relationship Specialty Start Date End Date Kristian Lee MD [address] [place] [address] PCP - General 10/04/12 [address] Mejias [address] [place] [address] [place] [address] Clip Loading Machine Feeder 02/21/23 documented as of this encounter
== END 2025-05-09 09:49 | disposition home or self-care (01) ==
LOC: ANHAUDIO 09:48
PROVIDERS: PCP Family Medicine; Visit Provider Otolaryngology
DX: H93.13 Tinnitus, bilateral (principal); H90.3 Sensorineural hearing loss, bilateral
CPT/HCPCS: 92557; 92567

== ENCOUNTER 2025-07-15 10:11 | Outpatient (CLI) | payer MEDICARE, OTHER, SELFPAY ==
--- NOTE | 2025-07-15 10:40 | NEURO_ITS ---
Impression: # Non-diabetic complains of numbness of hand. ? # No Carpal Tunnel Syndrome. ? # Bilateral Ulnar Neuropathy across the elbow. ? # Normal Needle/ EMG exam. Nerve Conduction Studies ?Stim Site NR Peak (ms) P-T Amp (?V) Site1 Site2 Delta-P (ms) Dist (cm) Jerardo (m/s) Left Median Anti Sensory (2-3nd Digit) Wrist ? 3.2 28.7 Wrist 2-3nd Digit 3.2 14.0 44 Wrist ? 3.3 39.0 Wrist 2-3nd Digit 3.2 14.0 44 Right Median Anti Sensory (2-3nd Digit) Wrist ? 3.5 11.8 Wrist 2-3nd Digit 3.5 14.0 40 Wrist ? 3.8 24.9 Wrist 2-3nd Digit 3.5 14.0 40 Left Radial Anti Sensory (Base 1st Digit) Wrist ? 2.3 6.7 Wrist Base 1st Digit 2.3 0.0 Right Radial Anti Sensory (Base 1st Digit) Wrist ? 2.3 5.3 Wrist Base 1st Digit 2.3 0.0 Left Ulnar Anti Sensory (5th Digit) Wrist ? 3.1 20.4 Wrist 5th Digit 3.1 14.0 45 Right Ulnar Anti Sensory (5th Digit) Wrist ? 3.0 20.6 Wrist 5th Digit 3.0 14.0 47 ?Stim Site NR Onset (ms) O-P Amp (mV) Site1 Site2 Delta-0 (ms) Dist (cm) Jerardo (m/s) Left Median Motor (Abd Poll Brev) Wrist ? 3.0 1.4 Elbow Wrist 6.5 33.0 51 Elbow ? 9.5 0.4 Right Median Motor (Abd Poll Brev) Wrist ? 3.4 3.1 Elbow Wrist 5.4 31.0 57 Elbow ? 8.8 2.2 Left Ulnar Motor (Abd Dig Minimi) Wrist ? 2.3 5.1 A Elbow Wrist 7.2 33.0 46 A Elbow ? 9.5 3.8 B Elbow Wrist 5.6 28.0 50 B Elbow ? 7.9 4.5 Right Ulnar Motor (Abd Dig Minimi) Wrist ? 2.3 5.7 A Elbow Wrist 6.8 30.0 44 A Elbow ? 9.1 6.1 B Elbow Wrist 5.1 23.0 45 B Elbow ? 7.4 5.7 F Wave Studies ?NR F-Lat (ms) L-R F-Lat (ms) Left Median (Mrkrs) (Abd Poll Brev) ? 30.31 0.31 Right Median (Mrkrs) (Abd Poll Brev) ? 30.00 0.31 Left Ulnar (Mrkrs) (Abd Dig Min) ? 32.39 0.70 Right Ulnar (Mrkrs) (Abd Dig Min) ? 33.09 0.70 Electromyography ?Side Muscle Nerve Root Ins Act Fibs Amp Dur Recrt Comment Right 1stDorInt Ulnar C8-T1 Nml Nml Nml Nml Nml Right Ext Indicis Radial (Post Int) C7-8 Nml Nml Nml Nml Nml Right Ext Digitorum Radial (Post Int) C7-8 Nml Nml Nml Nml Nml Right BrachioRad Radial C5-6 Nml Nml Nml Nml Nml Right PronatorTeres Median C6-7 Nml Nml Nml Nml Nml Right Abd Poll Brev Median C8-T1 Nml Nml Nml Nml Nml Right ABD Dig Min Ulnar C8-T1 Nml Nml Nml Nml Nml Right FlexPolLong Median (Ant Int) C7-8 Nml Nml Nml Nml Nml Right Abd Poll Long Radial (Post Int) C7-8 Nml Nml Nml Nml Nml Left 1stDorInt Ulnar C8-T1 Nml Nml Nml Nml Nml Left Ext Indicis Radial (Post Int) C7-8 Nml Nml Nml Nml Nml Left Ext Digitorum Radial (Post Int) C7-8 Nml Nml Nml Nml Nml Left BrachioRad Radial C5-6 Nml Nml Nml Nml Nml Left PronatorTeres Median C6-7 Nml Nml Nml Nml Nml Left Abd Poll Brev Median C8-T1 Nml Nml Nml Nml Nml Left ABD Dig Min Ulnar C8-T1 Nml Nml Nml Nml Nml Left FlexPolLong Median (Ant Int) C7-8 Nml Nml Nml Nml Nml Left Abd Poll Long Radial (Post Int) C7-8 Nml Nml Nml Nml Nml
== END 2025-07-15 10:12 | disposition home or self-care (01) ==
LOC: ANHNEURO 10:15
PROVIDERS: PCP Family Medicine; Visit Provider Plastic Surgery
DX: M18.0 Bilateral primary osteoarthritis of first carpometacarpal joints (principal); G56.23 Lesion of ulnar nerve, bilateral upper limbs
CPT/HCPCS: 95886; 95911